=== PATIENT | female | born 2000 | race Caucasian/White ===

== ENCOUNTER → 2019-04-06 11:43 | Outpatient (CLI) | payer BC, SELFPAY ==
[2019-04-06 12:17] LABS: Add Manual Diff / Slide Review NO; Basophils Absolute Auto 0 /uL (0-100); Basophils Percent Auto 0.3 % (0-2); Eosinophils Absolute Auto 100 /uL (0-450); Eosinophils Percent Auto 0.9 % (2-4); Hematocrit 39.5 % (36-46); Hemoglobin 13.5 g/dL (12.0-16.0); Lymphocytes Absolute Auto 1500 /uL (1100-4500); Lymphocytes Percent Auto 18.7 % (25-40); Mean Corpuscular HGB Conc 34.1 % (30-36); Mean Corpuscular Hemoglobin 29.9 PG (26-34); Mean Corpuscular Volume 87.6 fL (80-100); Monocytes Absolute Auto 700 /uL (0-900); Monocytes Percent Auto 8.5 % (3-14); Neutrophils Absolute Auto 5600 /uL (1500-7000); Neutrophils Percent Auto 71.6 % (50-75); Platelet Count 229 X10^3/uL (150-400); Red Blood Cell Count 4.51 X10^6/uL (4.0-5.2); White Blood Cell Count 7.9 X10^3/uL (4.5-11.0)
[2019-04-06 12:21] LABS: Appearance Urine UA CLEAR; Bilirubin Urine UA NEGATIVE (NEGATIVE); Color Urine UA YELLOW; Glucose Urine UA NEGATIVE (Negative); Ketones Urine UA NEGATIVE (NEGATIVE); Leukocyte Esterase Urine UA NEGATIVE (NEGATIVE); Nitrite Urine UA NEGATIVE (Negative); Occult Blood Urine UA 1+ (Negative); Protein Urine UA NEGATIVE (Negative); Specific Gravity Urine UA <=1.005 (1.000-1.035); Urobilinogen Urine UA 0.2 E.U./dL (0.2)
[2019-04-06 12:41] LABS: Amorphous Sediment Urine 1+; RBC Urine 1-5/HPF (0-5/HPF); Squamous Epithelial Cell Urine 5-10 /HPF (0-5/HPF); WBC Urine 1-5/HPF (0-5/HPF)
[2019-04-06 12:42] LABS: Bacteria Urine Occasional (0-1); Mucus Urine 1+ (Negative)
[2019-04-06 15:25] LABS: Hepatitis B Surface Antigen NEGATIVE s/c (NEGATIVE)
[2019-04-06 15:49] LABS: HIV 1 & 2 Ab/Ag 4th Gen Combo NEGATIVE (NEGATIVE); Hep C Virus Ab w/Reflex Quant NEGATIVE s/c (NEGATIVE)
[2019-04-08 15:44] LABS: RPR Screen Nonreactive (Nonreactive)
== END ==
PROVIDERS: PCP Family Medicine; Visit Provider Obstetrics & Gynecology
DX: Z34.01 Encounter for supervision of normal first pregnancy, first trimester (principal)
CPT/HCPCS: 36415; 80055; 81003; 81015; 86787; 86803; 86850; 86900; 86901; 87086; 87389

== ENCOUNTER → 2019-04-26 15:21 | Outpatient (CLI) | payer BC, SELFPAY ==
[2019-04-29 13:34] LABS: Sequential Screen 1st Trimeste FINAL PENDING
== END ==
PROVIDERS: PCP Family Medicine
DX: Z34.01 Encounter for supervision of normal first pregnancy, first trimester (principal); Z3A.12 12 weeks gestation of pregnancy; Z36.0 Encounter for antenatal screening for chromosomal anomalies
CPT/HCPCS: 36415; 84163; 84702

== ENCOUNTER → 2019-05-25 10:15 | Outpatient (CLI) | payer BC, SELFPAY ==
[2019-05-25 11:52] LABS: Hematocrit 36.9 % (36-46); Hemoglobin 12.8 g/dL (12.0-16.0)
[2019-05-25 12:13] LABS: GTT (PREG) 1 Hour PP 50gm Dose 154 mg/dL (76-139)
[2019-05-28 18:45] LABS: Brief History NTD NG; Cigarette Smoker NO; Donated Egg NO; Donor Egg Age NO; Estriol, Free 0.65 ng/mL; Inhibin A, Dimeric 298 pg/mL; Inhibin A, MoM 2.34; Maternal Weight 296 lbs; Number of Fetuses 1; Previous Pregnancy Down Syndro NO; hCG, MoM 2.17; hCG, Serum 44.2 IU/mL
== END ==
PROVIDERS: Family Provider Family Medicine; PCP Family Medicine; Visit Provider Obstetrics & Gynecology
DX: O99.210 Obesity complicating pregnancy, unspecified trimester (principal); Z34.90 Encounter for supervision of normal pregnancy, unspecified, unspecified trimester; Z34.02 Encounter for supervision of normal first pregnancy, second trimester
CPT/HCPCS: 36415; 82105; 82677; 82950; 84702; 85014; 85018; 86336

== ENCOUNTER → 2019-06-01 13:48 | Outpatient (CLI) | payer BC, SELFPAY ==
[2019-06-01 15:27] LABS: Glucose Fasting Gestational 84 mg/dL (76-95)
[2019-06-01 17:32] LABS: Glucose 1 Hour Gest 184 mg/dL (76-180)
[2019-06-01 17:38] LABS: Glucose Tol Interp,Gestational INTERPRETATION
[2019-06-01 17:47] LABS: Glucose 2 Hour Gest 191 mg/dL (76-155)
[2019-06-01 19:18] LABS: Glucose 3 Hour Gest 108 mg/dL (76-140)
[2019-06-04 14:42] LABS: Sequential Screen 2nd Trimeste SCREEN NEGATIVE
== END ==
PROVIDERS: PCP Family Medicine; Visit Provider Obstetrics & Gynecology
DX: Z34.92 Encounter for supervision of normal pregnancy, unspecified, second trimester (principal); Z36.0 Encounter for antenatal screening for chromosomal anomalies; R73.09 Other abnormal glucose
CPT/HCPCS: 36415; 82105; 82677; 82951; 82952; 84163; 84702; 86336

== ENCOUNTER → 2019-06-15 13:40 | Outpatient (CLI) | payer BC, SELFPAY ==
--- NOTE | 2019-06-15 13:41 | DI.US.S_ITS ---
PROCEDURE: US OB >= 14 WEEKS FETUS INDICATIONS: 20 WEEK ANATOMY OUTSIDE/PRIOR DATING DATA: Last menstrual period (LMP): 01/26/19. LMP-based estimated date of delivery (TAMANNA): 11/02/19. First dating scan (date and location): 06/15/19. Estimated date of delivery (TAMANNA) from first dating scan: 10/30/19. TECHNIQUE: Real-time scanning was performed of the fetus, with image documentation and biometric measurements. Endovaginal scanning: Not performed COMPARISON: None. FINDINGS: General: A single living intrauterine gestation is present. Presentation: Vertex. Placenta: Placental position is anterior, there is complete placenta previa Amniotic fluid index: 13 cm, normal range is 5-24 cm. heart rate: 150 beats per minute. Maternal cervical canal: 5.4 cm long. Normal lower limit is 2.5 cm. biometrics: Biparietal diameter: 4.7 cm, 20 weeks 2 days Head circumference: 17.8 cm, 20 weeks 2 days Abdominal circumference: 14.9 cm, 20 weeks one day Femur length: 3.3 cm, 20 weeks 2 days Estimated gestational age from initial scan: not applicable. Composite gestational age from present scan: 20 weeks 3 days Estimated weight and percentile: 339 g, 58th percentile Measurement variability for biometric dating: +/- 7 days from 14 weeks to 15 weeks 6 days gestation, +/- 10 days from 16 weeks to 21 weeks 6 days gestation, +/- 2 weeks from 22 weeks to 27 weeks 6 days gestation, +/- 3 weeks for 28 weeks gestation or later. weight reference: 4500 g or EFW >90/95% is considered macrosomia or large for gestational age. EFW <10% is small for gestational age. EFW 5% or less is considered intra-uterine growth restriction. Anatomic survey: Neuro: Ventricles are non-dilated at less than 10 mm. Cisterna magna is normal at 3-11 mm. Cerebellum is normal in size and morphology. Nuchal skin fold: Normal at less than 6 mm between 14-21 weeks gestational age. Face: Not well-seen due to gestational position Spine: No evidence for spina bifida. Heart: Not well-visualized due to gestational position Diaphragm: Not well-seen. Stomach: Left-sided stomach is present. Kidneys: No hydronephrosis. Normal is less than 5 mm in 2nd trimester, less than 7 mm in 3rd trimester. Cord: 3-vessel cord has orthotopic insertion. Bladder: Normal in size. Extremities: All 4 extremities identified. IMPRESSION: Single living intrauterine fetus in vertex presentation. Expected interval growth as above heart, diaphragm, facial features not well-seen due to gestational position. Recommend followup. Remaining anatomic survey within normal limits as above Complete placenta previa. Recommend followup Dictated by: Jeff Kiran M.D. on 06/15/2019 at 18:47 Approved by: Jeff Kiran M.D. on 06/15/2019 at 18:50
== END ==
PROVIDERS: PCP Family Medicine; Visit Provider Family Medicine
DX: O44.02 Complete placenta previa NOS or without hemorrhage, second trimester (principal); Z3A.20 20 weeks gestation of pregnancy
CPT/HCPCS: 76811

== ENCOUNTER → 2019-06-29 14:17 | Outpatient (CLI) | payer BC, SELFPAY ==
--- NOTE | 2019-06-29 14:18 | DI.US.S_ITS ---
PROCEDURE: US OB FOLLOW UP INDICATIONS: F/U ANATOMY SCAN OUTSIDE/PRIOR DATING DATA: Last menstrual period (LMP): 01/26/19. LMP-based estimated date of delivery (TAMANNA): 11/02/19. First dating scan (date and location): 06/15/19. Estimated date of delivery (TAMANNA) from first dating scan: 10/30/19. TECHNIQUE: Real-time scanning was performed of the fetus, with image documentation. Endovaginal scanning: Not performed today COMPARISON: [facility], OB >= 14 WEEKS FETUS, 06/15/2019, 14:06. FINDINGS: A single living intrauterine gestation is present. Presentation: Variable. Placenta: Placental position is anterior, without previa. Previously seen placenta previa has resolved. The distance between the edge of the placenta to the internal cervical os measured 4.7 cm on today's study. Amniotic fluid index: 17.2 cm, normal range is 5-24 cm. The largest vertical fluid pocket measured 5.5 cm. heart rate: 147 beats per minute. Maternal cervical canal: 3.3 cm long. Normal lower limit is 2.5 cm. Estimated gestational age from initial scan: 22 weeks and 3 days. Evaluation of the diaphragm, heart, and facial bones appear normal. Facial profile well-visualized secondary to positioning throughout the entire examination. IMPRESSION: Single live intrauterine gestation with an estimated gestational age of approximately 22 weeks and 3 days. Interval growth has occurred. Evaluation of the diaphragm, heart, and facial bones appear within normal limits. However, the facial profile is again not well-visualized secondary to positioning throughout the duration of this examination. Consider followup imaging. Previously noted placenta previa is no longer visualized. The distance between the placental edge and the internal cervical os measured 4.7 cm on today's examination. Dictated by: Luis Marx M.D. on 06/29/2019 at 17:54 Approved by: Luis Marx M.D. on 06/29/2019 at 17:59
[2019-06-29 15:58] LABS: Add Manual Diff / Slide Review NO; Basophils Absolute Auto 0 /uL (0-100); Basophils Percent Auto 0.2 % (0-2); Eosinophils Absolute Auto 100 /uL (0-450); Eosinophils Percent Auto 0.9 % (2-4); Hematocrit 36.6 % (36-46); Hemoglobin 12.3 g/dL (12.0-16.0); Lymphocytes Absolute Auto 1300 /uL (1100-4500); Lymphocytes Percent Auto 15.3 % (25-40); Mean Corpuscular HGB Conc 33.5 % (30-36); Mean Corpuscular Hemoglobin 30.2 PG (26-34); Mean Corpuscular Volume 90.1 fL (80-100); Monocytes Absolute Auto 600 /uL (0-900); Monocytes Percent Auto 7.1 % (3-14); Neutrophils Absolute Auto 6600 /uL (1500-7000); Neutrophils Percent Auto 76.5 % (50-75); Platelet Count 214 X10^3/uL (150-400); Red Blood Cell Count 4.06 X10^6/uL (4.0-5.2); Red Cell Distribution Width 14.4 % (11.6-14.8); White Blood Cell Count 8.6 X10^3/uL (4.5-11.0)
[2019-06-29 16:17] LABS: Aspartate Aminotransferase 22 IU/L (14-36); BUN Creatinine Ratio 21.7 (6-22); Blood Urea Nitrogen 13 mg/dL (7-17); Estimated Glomerular Filt Rate > 60.0 mL/min (>60); Uric Acid 4.5 mg/dL (2.5-6.2)
[2019-06-29 16:22] LABS: Creatinine Urine Random 101.1 mg/dL; Protein (Total) Urine Random 12 mg/dL (0-12); Protein Creatinine Ratio Urine 0.11 GRAM/24H
== END ==
PROVIDERS: PCP Family Medicine; Referring Provider Obstetrics & Gynecology; Visit Provider Obstetrics & Gynecology
DX: Z34.92 Encounter for supervision of normal pregnancy, unspecified, second trimester (principal); Z3A.22 22 weeks gestation of pregnancy
CPT/HCPCS: 36415; 76816; 82570; 84156; 84450; 84550; 85025

== ENCOUNTER → 2019-07-13 12:32 | Outpatient (CLI) | payer BC, SELFPAY ==
--- NOTE | 2019-07-13 12:33 | DI.US.S_ITS ---
PROCEDURE: US OB FOLLOW UP INDICATIONS: FOLLOW UP FACE AND PROFILE OUTSIDE/PRIOR DATING DATA: Last menstrual period (LMP): 01/26/19. LMP-based estimated date of delivery (TAMANNA): 11/02/19. First dating scan (date and location): 06/15/19. Estimated date of delivery (TAMANNA) from first dating scan: 10/30/19.. TECHNIQUE: Real-time scanning was performed of the fetus, with image documentation and biometric measurements. Endovaginal scanning: NA COMPARISON: [facility], OB FOLLOW UP, 06/29/2019, 14:39. FINDINGS: General: A single living intrauterine gestation is present. Presentation: Breech Placenta: Placental position is anterior, without previa. Amniotic fluid index: 14.4 cm, normal range is 5-24 cm. heart rate: 158 beats per minute. Maternal cervical canal: Not well-seen. Estimated gestational age from initial scan: 24 weeks 3 days Other: Not applicable. IMPRESSION: 1. Single living IUP redemonstrated and today's exam demonstrating normal appearance of the diaphragm, orbits, left, nose, chin and facial profile. Dictated by: Glenn NERI Interpreted: Jennifer Chirinos MD on 07/13/2019 at 16:24 Approved by: Audi Mcclain M.D. on 07/16/2019 at 11:36
== END ==
PROVIDERS: PCP Family Medicine; Referring Provider Family Medicine; Visit Provider Obstetrics & Gynecology
DX: Z36.2 Encounter for other antenatal screening follow-up (principal); Z3A.24 24 weeks gestation of pregnancy
CPT/HCPCS: 76816

== ENCOUNTER → 2019-08-10 13:06 | Outpatient (CLI) | payer BC, SELFPAY ==
[2019-08-10 14:02] LABS: Hematocrit 38.8 % (36-46); Hemoglobin 13.1 g/dL (12.0-16.0); Mean Corpuscular HGB Conc 33.8 % (30-36); Mean Corpuscular Hemoglobin 30.2 PG (26-34); Mean Corpuscular Volume 89.5 fL (80-100); Platelet Count 249 X10^3/uL (150-400); Red Blood Cell Count 4.34 X10^6/uL (4.0-5.2); White Blood Cell Count 9.3 X10^3/uL (4.5-11.0)
== END ==
PROVIDERS: Obstetrics & Gynecology; PCP Family Medicine; Referring Provider Obstetrics & Gynecology; Visit Provider Obstetrics & Gynecology
DX: Z34.02 Encounter for supervision of normal first pregnancy, second trimester (principal); Z3A.28 28 weeks gestation of pregnancy
CPT/HCPCS: 36415; 85027; 86850

== ENCOUNTER → 2019-09-17 11:47 | Outpatient (CLI) | payer BC, SELFPAY ==
[2019-09-17 13:35] LABS: Add Manual Diff / Slide Review NO; Basophils Absolute Auto 0 /uL (0-100); Basophils Percent Auto 0.3 % (0-2); Eosinophils Absolute Auto 100 /uL (0-450); Eosinophils Percent Auto 0.9 % (2-4); Hemoglobin 12.5 g/dL (12.0-16.0); Lymphocytes Absolute Auto 1200 /uL (1100-4500); Lymphocytes Percent Auto 13.8 % (25-40); Mean Corpuscular HGB Conc 33.7 % (30-36); Monocytes Absolute Auto 700 /uL (0-900); Monocytes Percent Auto 7.5 % (3-14); Neutrophils Absolute Auto 7000 /uL (1500-7000); Neutrophils Percent Auto 77.5 % (50-75); Platelet Count 227 X10^3/uL (150-400); Red Blood Cell Count 4.16 X10^6/uL (4.0-5.2); Red Cell Distribution Width 14.6 % (11.6-14.8)
== END ==
PROVIDERS: PCP Family Medicine; Referring Provider Obstetrics & Gynecology; Visit Provider Obstetrics & Gynecology
DX: Z34.90 Encounter for supervision of normal pregnancy, unspecified, unspecified trimester (principal)
CPT/HCPCS: 36415; 85025

== ENCOUNTER 2019-09-24 10:54 | Outpatient (CLI) | payer BC, SELFPAY ==
--- NOTE | 2019-09-24 13:38 | PM.OBTRLD ---
Visit Information Visit Information Date of evaluation: 09/24/19 Primary OB Provider: Sammie Machuca Reason for Evaluation: Yes non-stress test Comments/Additional reasons for admission: This patient is a 18yo @34 weeks with well controlled GDMA1, presenting for scheduled testing after 12/24 BPP in office. PFSH Social History marital status: unmarried,living together household members: significant other pets and animals: Yes (Cats in-house and aware) education level: high school occupational status: student current occupational exposures/hazards: No Previous occupational history: Considering College : [employer] Pet[employer] special issa needs: No travel history: recent leisure activities: exercise (walks) Smoking Status: Never smoker second hand exposure: No Evaluation Evaluation Baseline heart rate: 125 Variability: Moderate (11-25) monitor accelerations: Present monitor decelerations: Absent Category of Tracing: I Comments: tracing difficult due to body habitus- frequent LOC, maternal HR 100 Diagnosis, Plan/Disposition Plan/Disposition Plan: Home with routine f/u OB Disposition: home
== END 2019-09-24 12:25 | disposition home or self-care (01) ==
LOC: LABOR 11:01 → OB 09-27 09:34
PROVIDERS: PCP Family Medicine; Referring Provider Obstetrics & Gynecology; Visit Provider Obstetrics & Gynecology
DX: O24.419 Gestational diabetes mellitus in pregnancy, unspecified control (principal); Z3A.34 34 weeks gestation of pregnancy
CPT/HCPCS: 59025; G0378; G0379

== ENCOUNTER 2019-10-01 14:01 | Outpatient (CLI) | payer BC, SELFPAY ==
--- NOTE | 2019-10-01 14:35 | PM.OBTRLD ---
Visit Information Visit Information Date of evaluation: 10/01/19 Primary OB Provider: Sammie Machuca Reason for Evaluation: Yes non-stress test Comments/Additional reasons for admission: Patient with well controlled GDMA1, for NST after in-office BPP. Vital Signs Vital Signs: 124/70, HR 102 PFSH Surgical History Hx of tonsillectomy (Acute) [place] teeth extracted (Acute) Family History Mother Depression Bipolar 1 disorder Hypertension Hyperlipidemia Father Acquired hypothyroidism Grandfather Diabetes mellitus Grandfather Cancer Alzheimer's dementia Grandmother Cancer Family/Other Myocardial infarction Social History marital status: unmarried,living together household members: significant other pets and animals: Yes (Cats in-house and aware) education level: high school occupational status: student current occupational exposures/hazards: No Previous occupational history: 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 OB Disposition: home
== END 2019-10-01 14:38 | disposition home or self-care (01) ==
LOC: LABOR 14:11 → OB 10-04 15:08
PROVIDERS: PCP Family Medicine; Referring Provider Obstetrics & Gynecology; Visit Provider Obstetrics & Gynecology
DX: O24.419 Gestational diabetes mellitus in pregnancy, unspecified control (principal); Z3A.35 35 weeks gestation of pregnancy
CPT/HCPCS: 59025; 87653; G0378; G0379

== ENCOUNTER → 2019-10-01 14:03 | Outpatient (CLI) | payer BC, SELFPAY ==
[2019-10-02 10:06] LABS: Strep Grp B PCR NEG for Grp B Strep
== END ==
PROVIDERS: PCP Family Medicine; Visit Provider Obstetrics & Gynecology
DX: Z34.03 Encounter for supervision of normal first pregnancy, third trimester (principal); Z3A.35 35 weeks gestation of pregnancy
CPT/HCPCS: 87653

== ENCOUNTER → 2019-10-08 14:12 | Outpatient (CLI) | payer BC, SELFPAY ==
--- NOTE | 2019-10-08 14:13 | DI.US.S_ITS ---
PROCEDURE: US OB LIMITED INDICATIONS: EFW OUTSIDE/PRIOR DATING DATA: Last menstrual period (LMP): 01/26/19. LMP-based estimated date of delivery (TAMANNA): 11/02/19. First dating scan (date and location): 06/15/19. Estimated date of delivery (TAMANNA) from first dating scan: 10/30/19. TECHNIQUE: Real-time scanning was performed of the fetus, with image documentation and biometric measurements. Endovaginal scanning: Not performed COMPARISON: [facility], OB >= 14 WEEKS FETUS, 10/08/2019, 10:17. [facility] OB >= 14 WEEKS FETUS, 10/01/2019, 13:23. [facility] OB >= 14 WEEKS FETUS, 09/24/2019, 10:39. [facility] OB >= 14 WEEKS FETUS, 09/17/2019, 11:15. [facility] OB >= 14 WEEKS FETUS, 08/20/2019, 11:50. [facility] OB FOLLOW UP, 07/13/2019, 13:01. [facility] OB FOLLOW UP, 06/29/2019, 14:39. [facility] OB >= 14 WEEKS FETUS, 06/15/2019, 14:06. FINDINGS: General: Presentation: Vertex. Placenta: Placental position is anterior, without previa. Amniotic fluid index: 14.8 cm, normal range is 5-24 cm. heart rate: 150 beats per minute. biometrics: Biparietal diameter: 9.0 cm, 36 weeks 3 days Head circumference: 33.3 cm, 38 weeks zero days Abdominal circumference: 32.9 cm, 36 weeks 6 days Femur length: 7.5 cm, 38 weeks one day Estimated gestational age from initial scan: 36 weeks 6 days Composite gestational age from present scan: 37 weeks 3 days Estimated weight and percentile: 3144 g, 65th percentile Measurement variability for biometric dating: +/- 7 days from 14 weeks to 15 weeks 6 days gestation, +/- 10 days from 16 weeks to 21 weeks 6 days gestation, +/- 2 weeks from 22 weeks to 27 weeks 6 days gestation, +/- 3 weeks for 28 weeks gestation or later. weight reference: 4500 g or EFW >90/95% is considered macrosomia or large for gestational age. EFW <10% is small for gestational age. EFW 5% or less is considered intra-uterine growth restriction. Other: Not applicable. IMPRESSION: Single living intrauterine fetus in vertex presentation demonstrating expected interval growth. Estimated weight 3144 g, 65th percentile Dictated by: Jeff Kiran M.D. on 10/08/2019 at 16:32 Approved by: Jeff Kiran M.D. on 10/08/2019 at 16:35
== END ==
PROVIDERS: PCP Family Medicine; Referring Provider Family Medicine; Visit Provider Obstetrics & Gynecology
DX: Z34.83 Encounter for supervision of other normal pregnancy, third trimester (principal); Z3A.37 37 weeks gestation of pregnancy
CPT/HCPCS: 76815

== ENCOUNTER 2019-10-08 15:00 | Outpatient (CLI) | payer BC, SELFPAY | END 2019-10-08 16:30 | disposition home or self-care (01) | LOC: OB 10-12 11:37 | PROVIDERS: PCP Family Medicine; Referring Provider Obstetrics & Gynecology; Visit Provider Obstetrics & Gynecology | DX: O24.410 Gestational diabetes mellitus in pregnancy, diet controlled (principal); E16.2 Hypoglycemia, unspecified; Z3A.37 37 weeks gestation of pregnancy | CPT/HCPCS: 59025; 76815; G0378; G0379 ==

== ENCOUNTER 2019-10-13 21:29 | Outpatient (CLI) | payer BC, SELFPAY ==
[2019-10-13 21:50] LABS: Add Manual Diff / Slide Review NO; Basophils Absolute Auto 0 /uL (0-100); Basophils Percent Auto 0.4 % (0-2); Eosinophils Absolute Auto 100 /uL (0-450); Hematocrit 36.7 % (36-46); Hemoglobin 12.6 g/dL (12.0-16.0); Lymphocytes Absolute Auto 1400 /uL (1100-4500); Lymphocytes Percent Auto 18.3 % (25-40); Mean Corpuscular HGB Conc 34.3 % (30-36); Mean Corpuscular Hemoglobin 30.3 PG (26-34); Mean Corpuscular Volume 88.2 fL (80-100); Monocytes Absolute Auto 600 /uL (0-900); Monocytes Percent Auto 7.5 % (3-14); Neutrophils Absolute Auto 5800 /uL (1500-7000); Neutrophils Percent Auto 72.8 % (50-75); Platelet Count 237 X10^3/uL (150-400); Red Blood Cell Count 4.16 X10^6/uL (4.0-5.2); Red Cell Distribution Width 14.8 % (11.6-14.8); White Blood Cell Count 7.9 X10^3/uL (4.5-11.0)
[2019-10-13 21:59] LABS: Aspartate Aminotransferase 20 IU/L (14-36); BUN Creatinine Ratio 18.2 (6-22); Blood Urea Nitrogen 12 mg/dL (7-17); Estimated Glomerular Filt Rate > 60.0 mL/min (>60); Uric Acid 5.8 mg/dL (2.5-6.2)
== END 2019-10-13 22:37 | disposition home or self-care (01) ==
LOC: OB 10-19 12:33
PROVIDERS: Obstetrics & Gynecology; PCP Family Medicine; Referring Provider Obstetrics & Gynecology; Visit Provider Obstetrics & Gynecology
DX: O24.410 Gestational diabetes mellitus in pregnancy, diet controlled (principal); E16.2 Hypoglycemia, unspecified; Z3A.37 37 weeks gestation of pregnancy
CPT/HCPCS: 36415; 59025; 84450; 84550; 85025; G0378; G0379

== ENCOUNTER 2019-10-15 11:24 | Outpatient (CLI) | payer BC, SELFPAY ==
--- NOTE | 2019-10-15 11:53 | PM.OBTRLD ---
Visit Information Visit Information Date of evaluation: 10/15/19 Primary OB Provider: Sammie Machuca Reason for Evaluation: Yes non-stress test Comments/Additional reasons for admission: Patient in scheduled testing for GDMA1. PFSH Surgical History Hx of tonsillectomy (Acute) [place] teeth extracted (Acute) Family History Mother Depression Bipolar 1 disorder Hypertension Hyperlipidemia Father Acquired hypothyroidism Grandfather Diabetes mellitus Grandfather Cancer Alzheimer's dementia Grandmother Cancer Family/Other Myocardial infarction Social History marital status: unmarried,living together household members: significant other pets and animals: Yes (Cats in-house and aware) education level: high school occupational status: student current occupational exposures/hazards: No Previous occupational history: Considering College : [employer] special issa needs: No travel history: recent leisure activities: exercise (walks) Smoking Status: Never smoker second hand exposure: No Exam Vital Signs (past 8 hours): 114/65, HR 92 Evaluation Evaluation Baseline heart rate: 115 Variability: Moderate (11-25) monitor accelerations: Present monitor decelerations: Absent Contraction Frequency (minutes): 3 Category of Tracing: I Diagnosis, Plan/Disposition Plan/Disposition Plan: home with routine follow up. OB Disposition: home
== END 2019-10-15 11:55 | disposition home or self-care (01) ==
LOC: LABOR 11:36 → OB 10-19 12:36
PROVIDERS: PCP Family Medicine; Referring Provider Obstetrics & Gynecology; Visit Provider Obstetrics & Gynecology
DX: O24.410 Gestational diabetes mellitus in pregnancy, diet controlled (principal); Z3A.37 37 weeks gestation of pregnancy
CPT/HCPCS: 59025; G0378; G0379

== ENCOUNTER 2019-10-22 12:33 | Outpatient (CLI) | payer BC, SELFPAY | END 2019-10-22 13:20 | disposition home or self-care (01) | LOC: LABOR 12:48 → OB 10-26 07:39 | PROVIDERS: PCP Family Medicine; Referring Provider Obstetrics & Gynecology; Visit Provider Obstetrics & Gynecology | DX: O24.410 Gestational diabetes mellitus in pregnancy, diet controlled (principal); Z3A.38 38 weeks gestation of pregnancy | CPT/HCPCS: 59025; G0378; G0379 ==

== ENCOUNTER → 2019-10-24 16:02 | Outpatient (CLI) | payer BC, SELFPAY ==
[2019-10-25 03:19] LABS: COVID19 Sendout Not Detected (Not Detect)
== END ==
PROVIDERS: PCP Family Medicine; Visit Provider Physician Assistant
DX: Z01.812 Encounter for preprocedural laboratory examination (principal)
CPT/HCPCS: 87635

== ENCOUNTER 2019-10-26 18:26 | Inpatient (IN) | payer BC, SELFPAY ==
[2019-10-26 18:45] VITALS: BP 131/71
[2019-10-26 20:00] LABS: Add Manual Diff / Slide Review NO; Basophils Absolute Auto 100 /uL (0-100); Basophils Percent Auto 0.6 % (0-2); Eosinophils Absolute Auto 100 /uL (0-450); Eosinophils Percent Auto 1.1 % (2-4); Hematocrit 37.8 % (36-46); Hemoglobin 13.1 g/dL (12.0-16.0); Lymphocytes Absolute Auto 1600 /uL (1100-4500); Lymphocytes Percent Auto 18.6 % (25-40); Mean Corpuscular HGB Conc 34.6 % (30-36); Mean Corpuscular Hemoglobin 30.6 PG (26-34); Mean Corpuscular Volume 88.3 fL (80-100); Monocytes Absolute Auto 700 /uL (0-900); Monocytes Percent Auto 7.8 % (3-14); Neutrophils Absolute Auto 6100 /uL (1500-7000); Neutrophils Percent Auto 71.9 % (50-75); Platelet Count 250 X10^3/uL (150-400); Red Blood Cell Count 4.28 X10^6/uL (4.0-5.2); Red Cell Distribution Width 14.7 % (11.6-14.8); White Blood Cell Count 8.4 X10^3/uL (4.5-11.0)
[2019-10-26] MEDS: DINOPROSTONE VAG (CERVIDIL) 10 MG VAG (20:45)
--- NOTE | 2019-10-27 07:47 | PM.OBHP.1 ---
OB HPI Date/Time Date of admission: 10/26/19 Date Patient Seen: 10/27/19 Time Patient Seen: 07:50 History of Present Condition Chief complaint: : 1 Para: 0 Estimated Date of Delivery: 11/02/19 Estimated Gestational Age (weeks): 39 Narrative: Geoffrey Aponte is a 18 year old @39+1 with well controlled GDMA1, presenting for induction of labor. The patient reports feeling well this AM and at admission, with irregular contractions somewhat intensifying this AM, but no VB, LOF, decreased movement, or PIH complaints. Other than her GDMA, the patient's has been uncomplicated. Her medical history is significant for depression, which is currently well controlled without medications. Indications Indication for induction OB: other (GDMA) History of Present care: good care, initiated at week # (10) and pounds weight gain (-19) Dating criteria: LMP confirmed by 1st trimester US Ultrasounds: normal 1st trimester US and normal mid trimester US Obstetrical complications: gestational diabetes Preadmission Labs Blood type: 0 (-) negative -: Antibody screen: negative, GBS status: negative, HBsAG: negative, HIV: negative, HSV 1: negative, HSV 2: negative and RPR/VDLR: negative -: Chlamydia screen: not detected and Gonorrhea screen: not detected -: Rubella: immune and Varicella: immune Sequential screen: low risk 1 hr GTT: 154 3 hr GTT: 3 hr (2/4 elevated) Evaluation Evaluation Baseline heart rate: 120 Variability: Average (6-10) monitor accelerations: Present monitor decelerations: Absent Category of Tracing: I Cervical dilation (cm): 3 Cervical effacement (%): 80 station: -1 Laboratory results: Laboratory Tests 10/26/19 10/26/19 19:50 19:50 WBC 8.4 RBC 4.28 Hgb 13.1 Hct 37.8 MCV 88.3 MCH 30.6 MCHC 34.6 RDW 14.7 Plt Count 250 Neut % (Auto) 71.9 Lymph % (Auto) 18.6 L [place] % (Auto) 7.8 Eos % (Auto) 1.1 L Baso % (Auto) 0.6 Neut # (Auto) 6100 Lymph # (Auto) 1600 Granite # (Auto) 700 Eos # (Auto) 100 Baso # (Auto) 100 Blood Type O Negative Antibody Screen Positive Antibody Identification Anti-D Comments: EFW 7#8 PFSH Surgical History Hx of tonsillectomy (Acute) [place] teeth extracted (Acute) Family History Mother Depression Bipolar 1 disorder Hypertension Hyperlipidemia Father Acquired hypothyroidism Grandfather Diabetes mellitus Grandfather Cancer Alzheimer's dementia Grandmother Cancer Family/Other Myocardial infarction Social History marital status: unmarried,living together household members: significant other pets and animals: Yes (Cats in-house and aware) education level: high school occupational status: student current occupational exposures/hazards: No Previous occupational history: 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 travel history: recent leisure activities: exercise (walks) Smoking Status: Never smoker second hand exposure: No Meds Home Medications and Allergies Home Medications Medication Instructions Recorded Confirmed Type prenat.vits,lisandra,[id number] 1 tab PO DAILY 03/23/19 04/26/19 History blood-glucose meter #1 each 06/04/19 Rx blood sugar diagnostic #400 each 06/07/19 06/07/19 Rx lancets 28 gauge #400 each 06/07/19 06/07/19 Rx Double Electric breast Pump and #1 each 08/10/19 Rx Supplies Allergies Allergy/AdvReac Type Severity Reaction Status Date / Time No Known Drug Allergies Allergy Verified 10/24/19 15:57 Review of Systems Constitutional Constitutional: Reports system reviewed and no additional complaints, except as documented Cardiovascular Cardiovascular: Reports system reviewed and no additional complaints, except as documented Respiratory Respiratory: Reports system reviewed and no additional complaints, except as documented Gastrointestinal Gastrointestinal: Reports system reviewed and no additional complaints, except as documented Genitourinary Genitourinary: Reports system reviewed and no additional complaints, except as documented Neurologic Neurologic: Reports system reviewed and no additional complaints, except as documented Exam Vital Signs (past 8 hours): 126/72, HR 90, T 36.7C Const General: cooperative, healthy appearing and comfortable GI Inspection: obesity Palpation: soft and No tender External Female Exam: normal external appearance Extrem General: normal to inspection Objective Labs Result Diagrams: 10/26/19 19:50 Labs: Laboratory Results - last 24 hr 10/26/19 10/26/19 19:50 19:50 WBC 8.4 RBC 4.28 Hgb 13.1 Hct 37.8 MCV 88.3 MCH 30.6 MCHC 34.6 RDW 14.7 Plt Count 250 Neut % (Auto) 71.9 Lymph % (Auto) 18.6 L Granite % (Auto) 7.8 Eos % (Auto) 1.1 L Baso % (Auto) 0.6 Neut # (Auto) 6100 Lymph # (Auto) 1600 Granite # (Auto) 700 Eos # (Auto) 100 Baso # (Auto) 100 Blood Type O Negative Antibody Screen Positive Antibody Identification Anti-D Assessment and Plan Assessment and Plan Assessment and Plan narrative: This patient is admitted for induction of labor at 39 weeks gestation due to GDMA1. She has a favorable cervix after 11 hours of ripening with a cervidil, which spontaneously fell out at 7 AM. She will be started on pitocin per protocol. Given her excellent GDMA1 control, FSGs to be performed every 1-2 hours while in labor. Patient to ambulate as feasible given difficulty of monitoring with habitus. - cEFM, toco - pitocin per protocol - HLIV, IV fluids as needed - Patient would like to try for unmedicated delivery, can have epidural at any time if desired - clear liquid diet during indution
[2019-10-27] MEDS: LACTATED RINGERS 1,000 ML 100 ML IV (08:37)
[2019-10-27] MEDS: OXYTOCIN PREMIX 30 UNIT/500 ML PLAST..BAG IV (08:37)
--- NOTE | 2019-10-27 11:06 | PM.OBPNLAB ---
Date/Time Date Patient Seen: 10/27/19 Time Patient Seen: 11:06 Pain Control Pain control: tolerating well Pelvic Exam Dilation (cm): 4 Effacement (%): 80 station: -1 Amniotic membrane status: Ruptured (AROM, clear fluid) Contractions Pitocin rate (mU/min): 6 Contraction frequency (min): 3 Contraction duration (min): 1 Contraction pattern: Regular Status status: Category l Heart Rate Baseline: 125 Monitor Accelerations: Present Monitor Decelerations: Absent Monitor Variability: Moderate Comments: +scalp stim Assessment and Plan Assessment: induction ongoing Plan: continuous present management Comments: Continue pitocin per protocol.
[2019-10-27] MEDS: CALCIUM CARBONATE 500 MG TAB PO (13:18)
[2019-10-27] MEDS: METHYLERGONOVINE 0.2 MG/ML VIAL IM (18:48)
--- NOTE | 2019-10-27 19:08 | PM.OBPRVD ---
Events: Gestational Diabetes Labor & Delivery Delivery date: 10/27/19 Intrapartal events: Acceleration and Deceleration Cervical ripening method: per Cervidil protocol Induction method: per pitocin protocol Delivery augmentation: rupture of membranes Delivery monitor: external FHT and external uterine Route of delivery: L&D Laceration Description: Periurethral - 1st Degree and Perineal - 2nd Degree Delivery repair: vicryl Estimated blood loss (mL): 350 Anesthesia type: None Narrative: This patient is a 18yo now P1 s/p after induction of labor for GDMA1. The patient presented and underwent cervical ripening with cervidil with subsequent transition to pitocin. She was induced per pitocin protocol, underwent AROM at 4cm, and progressed spontaneously to fully dilated. After a 1 hour pushing stage, she delivered a healthy baby girl. There was no nuchal cord, and the shoulders delivered with ease. Apgars were 8+8, weight 7#13. The placenta delivered intact spontaneously shortly thereafter with a three vessel cord. The patient received 30mU pitocin and 1x IM methergine due to persistent lower uterine segment atony. A small 2nd degree laceration was repaired in the usual fashion, and small 1st degree periuretheral lacerations bilaterally were spontaneously hemostatic. There were no other intrapartum or immediate complications. [place] Baby 1: Infant gender: Female Presentation: vertex position: Left Occiput Transverse (ALLISON) Placenta delivery description: Spontaneous cord vessel description: Clamped/Cut (Delayed cord clamping x1 minute) score (1 min): 8 score (5 min): 8 Plan for aftercare: Routine care.
[2019-10-27] MEDS: DERMOPLAST SPRAY 20% 60 ML 1 SPRAY TOP (22:24)
[2019-10-27] MEDS: IBUPROFEN 600 MG TABLET PO (22:24)
--- NOTE | 2019-10-28 15:27 | P.DS_ITS ---
Discharge Providers Provider Date of admission: 10/26/19 18:26 Discharge Date: 10/28/19 Primary care physician: Franchesca Farr DO Discharge provider: Sammie Machuca MD Summary Hospital Course Procedures: after induction of labor for GDMA1 Hospital Course: This patient was admitted at 39 weeks for induction of labor for GDMA1. She underwent cervical ripening with cervidil and induction with pitocin, per protocol. Her delivery was an uncomplicated , with AROM 7 hours before delivery for clear fluid throughout, GBS negative. She was delivered of a health y baby girl with apgars 8+8, no nuchal cord, shoulders delivered with ease, and weight 7#13, with meconium so terminal as to be at the introitus. The patient was shortly after the delivery, but the baby began to have respiratory distress approximately 4 hours after delivery and was transferred to a facility with a NICU with what was thought to be RDS vs. pneumonia. The patient strongly desired discharge to follow the baby to the receiving facility, and as she was stable and meeting goals, was discharged approximately 7 hours after delivery with plans to follow up in clinic for rhogam within 48 hours, which did occur. Peripartum Data Delivery Method: Natural Vaginal Laceration description: Perineal - 2nd Degree (repaired with 3-0 vicryl in the usual fashion) complications: other (with baby, see above) [place] 1: Gender: Female Disposition of : NICU Status at Discharge Cognitive/behavioral status at discharge: oriented Functional status at discharge: independent ambulation Overall status at discharge: patient is progressing back to baseline Time Spent with Patient Time attestation: Total time spent providing and/or coordinating discharge services: Objective Labs Result Diagrams: 10/26/19 19:50 Labs: Laboratory Results - last 24 hr 10/28/19 02:10 Maternal Bleed Negative Discharge Plan Discharge Plan Patient Disposition: Home Discharge orders & Medications Prescriptions: Continued (DME) Double Electric breast Pump and Supplies See Rx Instructions .ROUTE .MEDSUPPLY Qty: 1 RF: 0 Discontinued prenat.vits,lisandra,[id number] Tablet 1 tab PO DAILY RF: 0 Follow up/Referrals: Franchesca Farr DO [Primary Care Provider] - Visit Report/Discharge Packet Stand Alone Forms: Discharge: Care, Discharge: Care Discharge Data Primary Care Provider: Franchesca Farr Discharges patient from system. Discharge Date/Time: 10/28/19 02:24
== END 2019-10-28 02:24 | disposition home or self-care (01) | DRG 807 ==
PROVIDERS: Admitting Provider Obstetrics & Gynecology; PCP Family Medicine; Referring Provider Obstetrics & Gynecology; Visit Provider Obstetrics & Gynecology
DX: O24.429 Gestational diabetes mellitus in childbirth, unspecified control (principal); Z37.0 Single live birth; O71.82 Other specified trauma to perineum and vulva; O70.1 Second degree perineal laceration during delivery; Z3A.39 39 weeks gestation of pregnancy; Z01.812 Encounter for preprocedural laboratory examination
CPT/HCPCS: 36415; 59050; 59200; 59400; 85025; 85461; 86850; 86870; 86900; 86901; 87635; G0378; G0379; J2210; J2590

== ENCOUNTER → 2019-10-29 14:59 | Outpatient (CLI) | payer BC, SELFPAY ==
[2019-10-29 16:09] LABS: Add Manual Diff / Slide Review NO; Basophils Absolute Auto 0 /uL (0-100); Basophils Percent Auto 0.3 % (0-2); Eosinophils Absolute Auto 100 /uL (0-450); Eosinophils Percent Auto 1.6 % (2-4); Hematocrit 35.3 % (36-46); Hemoglobin 11.9 g/dL (12.0-16.0); Lymphocytes Absolute Auto 1400 /uL (1100-4500); Lymphocytes Percent Auto 15.7 % (25-40); Mean Corpuscular HGB Conc 33.6 % (30-36); Mean Corpuscular Hemoglobin 29.8 PG (26-34); Mean Corpuscular Volume 88.7 fL (80-100); Monocytes Absolute Auto 800 /uL (0-900); Monocytes Percent Auto 8.3 % (3-14); Neutrophils Absolute Auto 6800 /uL (1500-7000); Neutrophils Percent Auto 74.1 % (50-75); Platelet Count 245 X10^3/uL (150-400); Red Blood Cell Count 3.99 X10^6/uL (4.0-5.2); Red Cell Distribution Width 14.9 % (11.6-14.8); White Blood Cell Count 9.1 X10^3/uL (4.5-11.0)
== END ==
PROVIDERS: PCP Family Medicine; Referring Provider Obstetrics & Gynecology; Visit Provider Obstetrics & Gynecology
DX: R00.2 Palpitations (principal)
CPT/HCPCS: 36415; 85025

== ENCOUNTER 2019-11-04 09:47 | Emergency (ER) | payer BC, SELFPAY ==
[2019-11-04 09:54] VITALS: BP 143/88; PULSE 68; RESP 15; TEMP 37; O2SAT 100; BMI 39.4
--- NOTE | 2019-11-04 10:00 | DI.RAD.S_ITS ---
PROCEDURE: XR CHEST 1V INDICATIONS: chest pain TECHNIQUE: One view of the chest was acquired. COMPARISON: [facility], , CHEST 2 VIEW, 11/13/2016, 20:53. FINDINGS: Surgical changes and devices: None. Lungs and pleura: Lungs are clear. No pleural effusions or pneumothorax. Mediastinum: Mediastinal contours appear normal. Heart size is normal. Bones and chest wall: No suspicious bony lesions. Overlying soft tissues appear unremarkable. IMPRESSION: No acute cardiopulmonary abnormalities or focal airspace disease. Dictated by: Luis Marx M.D. on 11/04/2019 at 10:41 Approved by: Luis Marx M.D. on 11/04/2019 at 10:42
--- NOTE | 2019-11-04 10:13 | PC.NURSE ---
Denies chest pain, reports tight feeling in left chest, intermittent in intensity/constant. Occasional dizziness.
--- NOTE | 2019-11-04 10:18 | ED.CHESTPAIN ---
HPI - Chest Pain General Chief Complaint: Chest Pain Stated Complaint: WEEK POST ,CHEST PAIN/HIGH BLOOD PRESSURE Time Seen by Provider: 11/04/19 10:04 Source: patient Mode of arrival: Ambulatory Limitations: no limitations History of Present Illness HPI narrative: 18-year-old female. G1 now P1. Patient is Rh negative. Received RhoGAM post . Induced at 39 weeks gestation for diet-controlled gestational diabetes. Had a vaginal delivery of a girl. The baby did need to be transferred secondary to respiratory distress however since has been discharge from the NICU. Baby is breast-fed and bottle-fed. Mother states she is bonding well with the child. Her vaginal bleeding has greatly improved. Since delivery developed back pain and went to a chiropractor and had an adjustment. She reports this has improved. She also reports that she had lower extremity swelling which has since improved. No abdominal pain. She states that today she developed a headache. No vision changes. She had a home blood pressure cuff in took her blood pressure had a systolic in the 130s. She repeated it short time afterwards and had a systolic in the 140s. She contacted her OB provider and had scheduled a follow-up this afternoon for blood pressure check however patient then started to develop left-sided chest pressure so was told to come to the emergency department. She reports no shortness of breath. No right upper quadrant pain. No urinary symptoms. No change in bowel habits. Had no blood pressure issues during her . Related Data Previous Rx's Medication Instructions Recorded Double Electric breast Pump and #1 each 08/10/19 Supplies Allergies Allergy/AdvReac Type Severity Reaction Status Date / Time No Known Drug Allergies Allergy Verified 11/04/19 09:54 Review of Systems Constitutional Constitutional: Denies fever(s) and Reports headache(s) Eyes Eyes: Denies change in vision ENT Ears, Nose, Mouth, and Throat: Denies vertigo, Denies dizziness, Reports headache(s) and Denies sore throat Cardiovascular Cardiovascular: Reports chest pain (Described as a pressure), Denies rapid heart rate, Reports leg edema (Has improved since delivery) and Denies dyspnea Respiratory Respiratory: Denies cough and Denies dyspnea Gastrointestinal Gastrointestinal: Denies abdominal pain, Denies change in bowel habits, Denies diarrhea, Denies nausea and Denies vomiting Genitourinary Genitourinary: Denies dysuria Genitourinary: Denies dysuria Musculoskeletal Musculoskeletal: Denies arthralgias, Denies myalgias and Denies tingling Integumentary/Breasts Skin/Breast: Denies lesions and Denies rash Neurologic Neurologic: Denies behavioral changes, Denies confusion, Denies vertigo, Denies dizziness, Reports headache(s) and Denies tingling Psychiatric Psychiatric: Denies behavioral changes and Denies confusion Hematologic/Lymphatic Hematologic/Lymphatic: Denies easy bleeding and Denies easy bruising Patient History Medical History Vaginal delivery (Acute) Surgical History Hx of tonsillectomy (Acute) [place] teeth extracted (Acute) Family History Mother Depression Bipolar 1 disorder Hypertension Hyperlipidemia Father Acquired hypothyroidism Grandfather Diabetes mellitus Grandfather Cancer Alzheimer's dementia Grandmother Cancer Family/Other Myocardial infarction Social History marital status: unmarried,living together household members: significant other pets and animals: Yes (Cats in-house and aware) education level: high school occupational status: student current occupational exposures/hazards: No Previous occupational history: Considering 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 travel history: recent leisure activities: exercise (walks) Smoking Status: Never smoker second hand exposure: No Smoking Status: Never smoker Exam Initial Vital Signs Initial Vital Signs: Vital Signs Temperature 98.6 F 11/04/19 09:54 Pulse Rate 68 11/04/19 09:54 Respiratory Rate 15 11/04/19 09:54 Blood Pressure 143/88 H 11/04/19 09:54 Pulse Oximetry 100 11/04/19 09:54 Const General: cooperative, comfortable and well developed Limitations: mental status not altered HENCA Head: normal to inspection and normocephalic Chest Chest: No crepitus and No tenderness Resp Effort & Inspection: normal respiratory effort Auscultation: clear to auscultation bilaterally Cardio Rate: regular rate Rhythm: regular rhythm GI Inspection: non-distended Palpation: soft and No firm Skin Lesions: no lesions Rashes: no rashes Neuro General: patient alert, patient awake and patient oriented x3 Cognition: normal cognition Speech: speech normal Extrem General: normal to inspection, capillary refill normal and edema (1+ bilateral) Psych Appearance: grossly normal and well kempt Course Orders Ordered: ED Orders 11/04/19 10:00 XR chest 1V Stat EKG-12 Lead Stat 11/04/19 10:44 EKG-12 Lead Stat 11/04/19 10:45 Complete Blood Count AUTO DIFF Stat Comprehensive Metabolic Panel Stat Lipase Stat Partial Thromboplastin Time Stat Prothrombin Time INR Stat Troponin & CK Cardiac Panel Stat 11/04/19 11:20 Urine Microscopic Stat Vital Signs Vital signs: Vital Signs - 8 hr 11/04/19 09:54 11/04/19 11:24 11/04/19 12:46 Temperature 98.6 F 98.0 F Pulse Rate 68 58 L 51 L Respiratory Rate 15 22 21 Blood Pressure 143/88 H 133/74 Blood Pressure [Left Arm] 135/79 Pulse Oximetry 100 97 97 MDM - Chest Pain Medical Records Data Attestation: I reviewed the patient's medical records. Lab Data Attestation: I reviewed the patient's lab results. Result diagrams: 11/04/19 10:45 11/04/19 10:45 Labs: Lab Results 11/04/19 11/04/19 11/04/19 Range/Units 10:45 10:45 10:45 WBC 6.4 (4.5-11.0) X10^3/uL RBC 4.21 (4.0-5.2) X10^6/uL Hgb 12.8 (12.0-16.0) g/dL Hct 37.2 (36-46) % MCV 88.3 (80-100) fL MCH 30.3 (26-34) PG MCHC 34.3 (30-36) % RDW 14.6 (11.6-14.8) % Plt Count 287 (150-400) X10^3/uL Neut % (Auto) 64.9 (50-75) % Lymph % (Auto) 23.6 L (25-40) % Whiteside % (Auto) 7.2 (3-14) % Eos % (Auto) 3.6 (2-4) % Baso % (Auto) 0.7 (0-2) % Neut # (Auto) 4200 (0581-6275) /uL Lymph # (Auto) 1500 (6310-5315) /uL Whiteside # (Auto) 500 (0-900) /uL Eos # (Auto) 200 (0-450) /uL Baso # (Auto) 0 (0-100) /uL PT 12.1 (10.1-12.7) SECONDS INR 1.0 (0.9-1.3) APTT 37 H (26.4-36.2) SECONDS Sodium 138 (137-145) mmol/L Potassium 4.3 (3.4-5.1) mmol/L Chloride 107 (98-107) mmol/L Carbon Dioxide 23 (22-32) mmol/L BUN 20 H (7-17) mg/dL Creatinine 0.80 (0.52-1.04) mg/dL Estimated GFR > 60.0 (>60) mL/min BUN/Creatinine Ratio 25.0 H (6-22) Glucose 88 (70-100) mg/dL Calcium 9.3 (8.4-10.2) mg/dL Total Bilirubin 0.3 (0.2-1.3) mg/dL AST 19 (14-36) IU/L ALT 26 (<35) IU/L Alkaline Phosphatase 107 (38-126) U/L Total Creatine Kinase 77 (30-135) U/L CK-MB (CK-2) TNP CK-MB (CK-2) Rel Index TNP Troponin I < 0.012 (0.01-0.034) ng/mL Total Protein 6.3 (6.3-8.2) g/dL Albumin 3.5 (3.5-5.0) g/dL Globulin 2.8 (1.7-4.1) g/dL Albumin/Globulin Ratio 1.3 (1.0-2.8) Lipase 45 (23-300) U/L Urine RBC (0-5/HPF) Urine WBC (0-5/HPF) Ur Squamous Epith Cells (0-5/HPF) Amorphous Sediment Urine Bacteria (None) Ur Culture Indicated? 11/04/19 Range/Units 11:20 WBC (4.5-11.0) X10^3/uL RBC (4.0-5.2) X10^6/uL Hgb (12.0-16.0) g/dL Hct (36-46) % MCV (80-100) fL MCH (26-34) PG MCHC (30-36) % RDW (11.6-14.8) % Plt Count (150-400) X10^3/uL Neut % (Auto) (50-75) % Lymph % (Auto) (25-40) % Whiteside % (Auto) (3-14) % Eos % (Auto) (2-4) % Baso % (Auto) (0-2) % Neut # (Auto) (3381-3238) /uL Lymph # (Auto) (2127-4092) /uL Whiteside # (Auto) (0-900) /uL Eos # (Auto) (0-450) /uL Baso # (Auto) (0-100) /uL PT (10.1-12.7) SECONDS INR (0.9-1.3) APTT (26.4-36.2) SECONDS Sodium (137-145) mmol/L Potassium (3.4-5.1) mmol/L Chloride (98-107) mmol/L Carbon Dioxide (22-32) mmol/L BUN (7-17) mg/dL Creatinine (0.52-1.04) mg/dL Estimated GFR (>60) mL/min BUN/Creatinine Ratio (6-22) Glucose (70-100) mg/dL Calcium (8.4-10.2) mg/dL Total Bilirubin (0.2-1.3) mg/dL AST (14-36) IU/L ALT (<35) IU/L Alkaline Phosphatase (38-126) U/L Total Creatine Kinase (30-135) U/L CK-MB (CK-2) CK-MB (CK-2) Rel Index Troponin I (0.01-0.034) ng/mL Total Protein (6.3-8.2) g/dL Albumin (3.5-5.0) g/dL Globulin (1.7-4.1) g/dL Albumin/Globulin Ratio (1.0-2.8) Lipase (23-300) U/L Urine RBC 1-5/hpf (0-5/HPF) Urine WBC 5-10/hpf H (0-5/HPF) Ur Squamous Epith Cells 10-30 /hpf H (0-5/HPF) Amorphous Sediment 2+ Urine Bacteria Moderate (10-30) H (None) Ur Culture Indicated? Cult not indicated Point of Care Testing Test Results Positive Urine Dip Bedside Urine Glucose Negative Bedside Urine Bilirubin - Negative Bedside Urine Ketone - Negative Urine Specific Lafe 1.010 Bedside Urine Occult Blood +++ Bedside Urine pH 6.5 Bedside Urine Protein + 30 Bedside Urine Urobilinogen - Negative Bedside Urine Nitrite - Negative Bedside Urine Leukocytes +++ 500 Esterase Imaging Data Chest x-ray: Radiologist's Impression: [address] [address] XRay Report Signed Patient: Geoffrey Aponte [facility]#: [id number] : 2000Acct:[id number] Age/Sex: 18 / FDate of Service: 11/04/19 Loc: ED Accession Number: [id number] Procedure: XR chest 1V Ordering Provider: Devang Patrick D.O. PROCEDURE: XR CHEST 1V INDICATIONS: chest pain TECHNIQUE: One view of the chest was acquired. COMPARISON: [facility], , CHEST 2 VIEW, 11/13/2016, 20:53. FINDINGS: Surgical changes and devices: None. Lungs and pleura: Lungs are clear. No pleural effusions or pneumothorax. Mediastinum: Mediastinal contours appear normal. Heart size is normal. Bones and chest wall: No suspicious bony lesions. Overlying soft tissues appear unremarkable. IMPRESSION: No acute cardiopulmonary abnormalities or focal airspace disease. Dictated by: Luis Marx M.D. on 11/04/2019 at 10:41 Approved by: Luis Marx M.D. on 11/04/2019 at 10:42 ECG Data Attestation: I personally reviewed and interpreted this ECG as follows: Prior ECG tracings: not available for review Interpretation: Sinus bradycardia Ventricular rate of 59 Normal axis Normal QRS Normal QTC No ST T wave changes MDM Narrative Medical decision making narrative: Low suspicion for PE. Low suspicion for ACS. Low suspicion for CVA or TIA. Does have a headache. Initial blood pressure slightly elevated however this did improve without any intervention. Does have protein in her urine however also has blood. Rest for labs are unremarkable. Discussed the case with Dr. Farr who was on-call for OB to discuss the potential for preeclampsia. After review of the labs and discussion of the physical exam plan to be is to have the patient take her blood pressure at home and to give good follow-up instructions. Decision was made not to start the patient on antihypertensive medication. Do not feel the patient needs admitted to the hospital. I did discuss all this with the patient. We discussed return precautions and follow-up instructions. She expressed understanding and agreement. Discharge Plan Departure Patient Disposition: Home Clinical Impression: Bradycardia Chest pain Qualifiers: Chest pain type: unspecified Qualified Code(s): R07.9 - Chest pain, unspecified Discharge Date/Time: 11/04/19 12:52 Instructions: Pre-eclampsia Activity Restrictions/Additional Instructions: Take your blood pressure at home like we discussed. Keep all of your scheduled medical appointments. I do recommend that you contact either Dr. holloway or Dr. Farr for follow-up. Return to the emergency department for any new or worsening symptoms Prescriptions: No Action (DME) Double Electric breast Pump and Supplies See Rx Instructions .ROUTE .MEDSUPPLY Qty: 1 RF: 0 Referrals: rFanchesca Farr DO [Primary Care Provider] -
--- NOTE | 2019-11-04 10:45 | PC.NURSE ---
Pt reports throbbing pain 2-3/[address] as where she is experiencing the chest tightness. MD notified and repeat EKG ordered.
[2019-11-04 10:54] LABS: Add Manual Diff / Slide Review NO; Basophils Absolute Auto 0 /uL (0-100); Basophils Percent Auto 0.7 % (0-2); Eosinophils Absolute Auto 200 /uL (0-450); Eosinophils Percent Auto 3.6 % (2-4); Hematocrit 37.2 % (36-46); Hemoglobin 12.8 g/dL (12.0-16.0); Lymphocytes Absolute Auto 1500 /uL (1100-4500); Lymphocytes Percent Auto 23.6 % (25-40); Mean Corpuscular HGB Conc 34.3 % (30-36); Mean Corpuscular Hemoglobin 30.3 PG (26-34); Mean Corpuscular Volume 88.3 fL (80-100); Monocytes Absolute Auto 500 /uL (0-900); Monocytes Percent Auto 7.2 % (3-14); Neutrophils Absolute Auto 4200 /uL (1500-7000); Neutrophils Percent Auto 64.9 % (50-75); Platelet Count 287 X10^3/uL (150-400); Red Blood Cell Count 4.21 X10^6/uL (4.0-5.2); Red Cell Distribution Width 14.6 % (11.6-14.8); White Blood Cell Count 6.4 X10^3/uL (4.5-11.0)
[2019-11-04 11:00] LABS: Prothrombin Time 12.1 SECONDS (10.1-12.7)
[2019-11-04 11:03] LABS: PTT Partial Thromboplastin Tim 37 SECONDS (26.4-36.2)
[2019-11-04 11:05] LABS: Alanine Aminotransferase 26 IU/L (<35); Albumin 3.5 g/dL (3.5-5.0); Albumin Globulin Ratio 1.3 (1.0-2.8); Alkaline Phosphatase 107 U/L (38-126); Aspartate Aminotransferase 19 IU/L (14-36); Bilirubin Total 0.3 mg/dL (0.2-1.3); Blood Urea Nitrogen 20 mg/dL (7-17); Calcium 9.3 mg/dL (8.4-10.2); Carbon Dioxide 23 mmol/L (22-32); Chloride 107 mmol/L (98-107); Creatine Kinase 77 U/L (30-135); Estimated Glomerular Filt Rate > 60.0 mL/min (>60); Globulin 2.8 g/dL (1.7-4.1); Glucose 88 mg/dL (70-100); HEMOLYSIS < 15 (0-50); Lipase 45 U/L (23-300); Potassium 4.3 mmol/L (3.4-5.1); Sodium 138 mmol/L (137-145); Total Protein 6.3 g/dL (6.3-8.2)
[2019-11-04 11:17] LABS: Troponin I < 0.012 ng/mL (0.01-0.034)
[2019-11-04 11:24] VITALS: BP 135/79; PULSE 58; RESP 22; O2SAT 97
--- NOTE | 2019-11-04 11:42 | PC.NURSE ---
Reports chest throbbing/pain resolved after getting up and walking to [facility] and back.
[2019-11-04 11:47] LABS: RBC Urine 1-5/HPF (0-5/HPF); Squamous Epithelial Cell Urine 10-30 /HPF (0-5/HPF); WBC Urine 5-10/HPF (0-5/HPF)
[2019-11-04 11:48] LABS: Amorphous Sediment Urine 2+; Bacteria Urine Moderate (10-30); Culture Indicated Urine Cult Not Indicated
[2019-11-04 12:46] VITALS: BP 133/74; PULSE 51; RESP 21; TEMP 36.7; O2SAT 97
== END 2019-11-04 12:52 | disposition home or self-care (01) ==
PROVIDERS: Emergency Provider Emergency Medicine; PCP Family Medicine
DX: R07.9 Chest pain, unspecified (principal); R00.1 Bradycardia, unspecified; I10 Essential (primary) hypertension
CPT/HCPCS: 36415; 71045; 80053; 81003; 81015; 81025; 82550; 83690; 84484; 85025; 85610; 85730; 93005; 99284

== ENCOUNTER → 2019-12-27 07:06 | Outpatient (CLI) | payer BC, SELFPAY ==
--- NOTE | 2019-12-27 07:07 | DI.MRI.S_ITS ---
PROCEDURE: MR ANGIO HEAD WO CON INDICATIONS: HEADACHES TECHNIQUE: Noncontrast axial 3-D [id number] MR angiogram, with 3-dimensional maximum intensity projection (MIP) reformats of the internal carotid arteries and posterior circulation then performed. COMPARISON: None. FINDINGS: Image quality: Excellent. Anterior circulation: Intracranial internal carotid arteries demonstrate normal size and intraluminal flow signal. The flow within the paired anterior cerebral arteries is normal and symmetric. The flow within the middle cerebral arteries is normal and symmetric. The anterior communicating artery is seen. No stenoses, occlusions, or aneurysms. Posterior circulation: Visualized portions of the vertebral arteries demonstrate normal caliber, right vertebral dominant, and join to form a normal appearing basilar artery. The flow within the posterior cerebral arteries is normal and symmetric. No stenoses, occlusions, or aneurysms. IMPRESSION: Normal for age, source of current headache symptoms is not seen. Dictated by: Audi Mcclain M.D. on 12/27/2019 at 8:17 Approved by: Audi Mcclain M.D. on 12/27/2019 at 8:19
== END ==
PROVIDERS: PCP Family Medicine; Referring Provider Family Medicine; Visit Provider Family Medicine
DX: G44.84 Primary exertional headache (principal)
CPT/HCPCS: 70544

== ENCOUNTER 2020-04-21 06:14 | Observation (INO) | payer BC, SELFPAY ==
[2020-04-21] VITALS (22 sets, daily range): BP systolic 113–157; BP diastolic 58–92; PULSE 51–119; RESP 11–19; TEMP 35.6–37; O2SAT 96–100; BMI 37.6
--- NOTE | 2020-04-21 | PATH_ITS ---
[facility] Accession Number: [id number] . 01 Material submitted: . gallbladder - GALLBLADDER . 01 Clinical history: . EXTREME ABDOMEN PAIN FOR 3 DAYS . 02 Diagnosis: Gallbladder, Cholecystectomy: Gallbladder with cholelithiasis and cholesterolosis. Negative for dysplasia and malignancy. MRV 04/24/2020 1456 Local . 02 Electronically signed: . Suzie Kasper MD, Pathologist NPI- [id number] . 01 Gross description: . The specimen is received in formalin, labeled gallbladder, and consists of a 9.5 x 3.0 x 1.5 cm previously disrupted gallbladder with a 0.3 cm in diameter cystic duct. The serosa is higgins-pink to miranda and smooth. Opening reveals minimal green viscous bile and two higgins choleliths measuring 0.2 cm each. The mucosa is higgins-green and velvety with cholestrolosis. The wall thickness measures 0.1 cm. [employer] Specialist sections are submitted, to include the en face cystic margin (black), body, and fundus in cassette A1. ([id number]) /[facility] 04/22/2020 1634 Local . 02 Pathologist provided ICD-10: K80.60 . 02 CPT . 833747 Performed at: 01 [facility] [address], [place], [place] [id number] MD Michael Dickinson MD Phone: [phone] Performed at: 02 [facility] [address] [place], [place] [id number] MD Suzie Kasper MD Phone: [phone]
--- NOTE | 2020-04-21 06:18 | ED.GENADULT ---
HPI - General Adult General Stated complaint: Extreme abdomen pain for a 3 hours Time Seen by Provider: 04/21/20 06:16 Related Data Previous Rx's Medication Instructions Recorded Double Electric breast Pump and #1 each 08/10/19 Supplies norethindrone (contraceptive) 0.35 0.35 mg PO DAILY #84 tab 11/30/19 mg tablet indomethacin submicronized 20 mg 20 mg PO BID #60 cap 12/27/19 capsule Allergies Allergy/AdvReac Type Severity Reaction Status Date / Time No Known Drug Allergies Allergy Verified 11/30/19 13:56 Patient History Medical History Vaginal delivery Surgical History Hx of tonsillectomy [place] teeth extracted Family History Mother Depression Bipolar 1 disorder Hypertension Hyperlipidemia Father Acquired hypothyroidism Grandfather Diabetes mellitus Grandfather Cancer Alzheimer's dementia Grandmother Cancer Family/Other Myocardial infarction Social History marital status: unmarried,living together household members: significant other pets and animals: Yes (Cats in-house and aware) education level: high school occupational status: student current occupational exposures/hazards: No Previous occupational history: 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
--- NOTE | 2020-04-21 06:19 | ED_ITS ---
HPI - General Adult <DO Juan M Hobbs Last Filed: 04/21/20 18:08> General Chief complaint: Abdominal Pain Stated complaint: Extreme abdomen pain for a 3 hours Time Seen by Provider: 04/21/20 06:16 Source: patient Mode of arrival: Ambulatory Limitations: no limitations History of Present Illness HPI narrative: 19-year-old female who is 6 months here for evaluation of abdominal pain. She reports that the pain started in her epigastrium and upper abdomen approximately 3 hours ago. She has had some nausea but no vomiting. Did wake her from sleep. She had a bowel movement prior to arrival without any change in the pain. No urinary symptoms. She is on the end of her menstrual cycle so she is having some vaginal bleeding. She is not . No prior abdominal surgeries. Has not take anything for symptoms prior to arrival. She states that her symptoms have improved somewhat since the onset of Related Data Previous Rx's Medication Instructions Recorded Double Electric breast Pump and #1 each 08/10/19 Supplies norethindrone (contraceptive) 0.35 0.35 mg PO DAILY #84 tab 11/30/19 mg tablet indomethacin submicronized 20 mg 20 mg PO BID #60 cap 12/27/19 capsule Allergies Allergy/AdvReac Type Severity Reaction Status Date / Time No Known Drug Allergies Allergy Verified 11/30/19 13:56 Review of Systems <DO Juan M Hobbs Last Filed: 04/21/20 18:08> Constitutional Constitutional: Denies fever(s) and Denies headache(s) ENT Ears, Nose, Mouth, and Throat: Denies headache(s) Cardiovascular Cardiovascular: Denies chest pain and Denies dyspnea Respiratory Respiratory: Denies dyspnea Gastrointestinal Gastrointestinal: Reports abdominal pain, Denies change in bowel habits, Reports nausea and Denies vomiting Genitourinary Genitourinary: Denies dysuria Genitourinary: Denies dysuria and Reports vaginal discharge (Menstrual cycle) Musculoskeletal Musculoskeletal: Denies arthralgias and Denies myalgias Integumentary/Breasts Skin/Breast: Denies rash Neurologic Neurologic: Denies behavioral changes and Denies headache(s) Psychiatric Psychiatric: Denies behavioral changes Hematologic/Lymphatic Hematologic/Lymphatic: Denies easy bleeding and Denies easy bruising Allergic/Immunologic Allergic/Immunologic: Denies urticaria Patient History <DO Juan M Hobbs Last Filed: 04/21/20 18:08> Medical History (Updated 04/21/20 @ 11:34 by Mackenzie Ledezma MD) Vaginal delivery Surgical History Hx of tonsillectomy [place] teeth extracted Family History Mother Depression Bipolar 1 disorder Hypertension Hyperlipidemia Father Acquired hypothyroidism Grandfather Diabetes mellitus Grandfather Cancer Alzheimer's dementia Grandmother Cancer Family/Other Myocardial infarction Social History marital status: unmarried,living together household members: significant other pets and animals: Yes (Cats in-house and aware) education level: high school occupational status: student current occupational exposures/hazards: No Previous occupational history: Considering 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- [employer] special issa needs: No travel history: recent leisure activities: exercise (walks) Smoking Status: Never smoker second hand exposure: No alcohol intake: never Smoking Status: Never smoker Exam <Devang Patrick DO - Last Filed: 04/21/20 18:08> Initial Vital Signs Initial Vital Signs: Vital Signs Temperature 97.5 F L 04/21/20 06:22 Pulse Rate 106 H 04/21/20 06:22 Respiratory Rate 16 04/21/20 06:22 Blood Pressure 157/86 H 04/21/20 06:22 Pulse Oximetry 97 04/21/20 06:22 Const General: cooperative and comfortable Limitations: mental status not altered HENMT Head: normal to inspection and normocephalic Resp Effort & Inspection: normal respiratory effort Auscultation: clear to auscultation bilaterally Cardio Rate: regular rate Rhythm: regular rhythm GI Inspection: non-distended Palpation: soft, No firm and tender (Upper abdomen) Skin Lesions: no lesions Rashes: no rashes Neuro General: patient alert, patient awake and patient oriented x3 Cognition: normal cognition Speech: speech normal Extrem General: normal to inspection and capillary refill normal Psych Appearance: grossly normal and well kempt <Anneliese Aviles MD - Last Filed: 04/21/20 10:18> Initial Vital Signs Initial Vital Signs: Vital Signs Temperature 97.5 F L 04/21/20 06:22 Pulse Rate 106 H 04/21/20 06:22 Respiratory Rate 16 04/21/20 06:22 Blood Pressure 157/86 H 04/21/20 06:22 Pulse Oximetry 97 04/21/20 06:22 Course <Devang Patrick DO - Last Filed: 04/21/20 18:08> Orders Ordered: Acetaminophen (Acetaminophen 325 Mg Tablet) 650 mg PO Q6HR PRN PRN Reason: Fever/Mild Pain (1-3) Last Admin: 04/21/20 16:04 Dose: 650 mg Documented by: DEREK Docusate Sodium (Docusate 100 Mg Capsule) 100 mg PO BID MAGALI Hydromorphone HCl (Hydromorphone 0.5 Mg Inj) 0.5 mg IV Q4HR PRN PRN Reason: Pain, Severe (7-10) Lactated Ringer's (Lactated Ringers) 1,000 mls @ 100 mls/hr IV CONT MAGALI Last Infusion: 04/21/20 14:28 Dose: 0 mls/hr Documented by: Admin: 04/21/20 13:55 Dose: 100 mls/hr Documented by: Infusion: 04/21/20 13:55 Dose: 100 mls/hr Documented by: Admin: 04/21/20 11:20 Dose: 100 mls/hr Documented by: RUPERT Influenza Virus Vaccine (Influenza Vaccine 0.5 Ml Syringe) 0.5 ml IM .ONCE ONE Stop: 04/22/20 09:01 Morphine Sulfate (Morphine 2 Mg/Ml Inj) 2 mg IV Q4HR PRN PRN Reason: Pain, Moderate (4-6) Naloxone HCl (Naloxone 0.4 Mg/Ml Vial) 0.2 mg IV Q2MIN PRN PRN Reason: Opiate Reversal Ondansetron HCl (Ondansetron 4 Mg/2 Ml Inj) 4 mg IV Q4HR PRN PRN Reason: Nausea And Vomiting Last Admin: 04/21/20 17:14 Dose: 4 mg Documented by: DEREK Oxycodone HCl (Oxycodone Ir 5 Mg Tablet) 5 mg PO Q4HR PRN PRN Reason: Pain, Moderate (4-6) Discontinued Medications Bupivacaine HCl/Epinephrine Bitart (Bupivacaine 0.5% W/ Epi (Pf) 30 Ml Vial) 30 ml INJ NOW ONE Stop: 04/21/20 12:42 Last Admin: 04/21/20 13:33 Dose: 30 ml Documented by: Admin: 04/21/20 12:41 Dose: 30 ml Documented by: PAUL Fentanyl (Fentanyl 100 Mcg/2 Ml Inj) 0 mcg IV Q5M PRN PRN Reason: Pain, Moderate (4-6) Hydromorphone HCl (Hydromorphone 1 Mg Inj) 0.5 mg IV Q4HR PRN PRN Reason: Pain, Severe (7-10) Hydromorphone HCl (Hydromorphone 2 Mg Inj) 0 mg IV Q5M PRN PRN Reason: Pain, Severe (7-10) Sodium Chloride (Normal Saline 0.9%) 1,000 mls @ 150 mls/hr IV CONT [facility] Last Admin: 04/21/20 15:38 Dose: Not Given Documented by: DEREK Piperacillin/Tazobactam/Dextrose (Zosyn) 3.375 gm in 50 mls @ 100 mls/hr IV NOW ONE Stop: 04/21/20 13:09 Last Admin: 04/21/20 11:50 Dose: 100 mls/hr Documented by: MIGUE Metoclopramide HCl (Metoclopramide 10 Mg/2 Ml Inj) 10 mg IV NOW PRN PRN Reason: Nausea And Vomiting Non-Formulary Medication (Indocyanine) 25 mg IV PREOP [facility] Last Admin: 04/21/20 12:43 Dose: 25 mg Documented by: MIGUE Ondansetron HCl (Ondansetron 4 Mg/2 Ml Inj) 4 mg IV NOW PRN PRN Reason: Nausea And Vomiting Oxycodone/Acetaminophen (Oxycodone/Acetaminophen 5/325 Tablet) 1 tab PO PACUNOW PRN PRN Reason: Mild or Moderate Pain Vital Signs Vital signs: Vital Signs - 8 hr 04/21/20 06:22 04/21/20 07:24 04/21/20 07:30 Temperature 97.5 F L Pulse Rate 106 H 64 66 Respiratory Rate 16 Blood Pressure 157/86 H Pulse Oximetry 97 99 98 04/21/20 08:00 04/21/20 08:30 Temperature Pulse Rate 59 L 51 L Respiratory Rate Blood Pressure Pulse Oximetry 99 96 <Anneliese Aviles MD - Last Filed: 04/21/20 10:18> Course Course Narrative: Care is assumed from Dr. Patrick. 19-year-old woman presents with acute onset severe right upper quadrant and generalized abdominal pain st arting approximately 230 this morning. Has subsided somewhat but still coming in waves. No fevers or vomiting. Ultrasound shows mild hepatomegaly mild fatty infiltrate and several gallstones 1 5 cm stone it seems to be lodged in the neck of the gallbladder. Positive Patel sign. Gallbladder wall measures 1.5. Common bile duct is 3.6 mm. No elevated alkaline phosphatase or bilirubin. Transaminases are essentially normal. She is currently finishing her menstrual cycle and takes control pills. Last meal was at 10:00 p.m. last night. Pt is seen by Dr Ledezma and will be admitted in anticipation of surgical intervention later today. Orders Ordered: Acetaminophen (Acetaminophen 325 Mg Tablet) 650 mg PO Q6HR PRN PRN Reason: Fever/Mild Pain (1-3) Last Admin: 04/21/20 16:04 Dose: 650 mg Documented by: DEREK Docusate Sodium (Docusate 100 Mg Capsule) 100 mg PO BID MAGALI Hydromorphone HCl (Hydromorphone 0.5 Mg Inj) 0.5 mg IV Q4HR PRN PRN Reason: Pain, Severe (7-10) Lactated Ringer's (Lactated Ringers) 1,000 mls @ 100 mls/hr IV CONT MAGALI Last Infusion: 04/21/20 14:28 Dose: 0 mls/hr Documented by: Admin: 04/21/20 13:55 Dose: 100 mls/hr Documented by: Infusion: 04/21/20 13:55 Dose: 100 mls/hr Documented by: Admin: 04/21/20 11:20 Dose: 100 mls/hr Documented by: RUPERT Influenza Virus Vaccine (Influenza Vaccine 0.5 Ml Syringe) 0.5 ml IM .ONCE ONE Stop: 04/22/20 09:01 Morphine Sulfate (Morphine 2 Mg/Ml Inj) 2 mg IV Q4HR PRN PRN Reason: Pain, Moderate (4-6) Naloxone HCl (Naloxone 0.4 Mg/Ml Vial) 0.2 mg IV Q2MIN PRN PRN Reason: Opiate Reversal Ondansetron HCl (Ondansetron 4 Mg/2 Ml Inj) 4 mg IV Q4HR PRN PRN Reason: Nausea And Vomiting Last Admin: 04/21/20 17:14 Dose: 4 mg Documented by: DEREK Oxycodone HCl (Oxycodone Ir 5 Mg Tablet) 5 mg PO Q4HR PRN PRN Reason: Pain, Moderate (4-6) Discontinued Medications Bupivacaine HCl/Epinephrine Bitart (Bupivacaine 0.5% W/ Epi (Pf) 30 Ml Vial) 30 ml INJ NOW ONE Stop: 04/21/20 12:42 Last Admin: 04/21/20 13:33 Dose: 30 ml Documented by: Admin: 04/21/20 12:41 Dose: 30 ml Documented by: PAUL Fentanyl (Fentanyl 100 Mcg/2 Ml Inj) 0 mcg IV Q5M PRN PRN Reason: Pain, Moderate (4-6) Hydromorphone HCl (Hydromorphone 1 Mg Inj) 0.5 mg IV Q4HR PRN PRN Reason: Pain, Severe (7-10) Hydromorphone HCl (Hydromorphone 2 Mg Inj) 0 mg IV Q5M PRN PRN Reason: Pain, Severe (7-10) Sodium Chloride (Normal Saline 0.9%) 1,000 mls @ 150 mls/hr IV CONT MAGALI Last Admin: 04/21/20 15:38 Dose: Not Given Documented by: DEREK Piperacillin/Tazobactam/Dextrose (Zosyn) 3.375 gm in 50 mls @ 100 mls/hr IV NOW ONE Stop: 04/21/20 13:09 Last Admin: 04/21/20 11:50 Dose: 100 mls/hr Documented by: MIGUE Metoclopramide HCl (Metoclopramide 10 Mg/2 Ml Inj) 10 mg IV NOW PRN PRN Reason: Nausea And Vomiting Non-Formulary Medication (Indocyanine) 25 mg IV PREOP MAGALI Last Admin: 04/21/20 12:43 Dose: 25 mg Documented by: MIGUE Ondansetron HCl (Ondansetron 4 Mg/2 Ml Inj) 4 mg IV NOW PRN PRN Reason: Nausea And Vomiting Oxycodone/Acetaminophen (Oxycodone/Acetaminophen 5/325 Tablet) 1 tab PO PACUNOW PRN PRN Reason: Mild or Moderate Pain Vital Signs Vital signs: Vital Signs - 8 hr 04/21/20 06:22 04/21/20 07:24 04/21/20 07:30 Temperature 97.5 F L Pulse Rate 106 H 64 66 Respiratory Rate 16 Blood Pressure 157/86 H Pulse Oximetry 97 99 98 04/21/20 08:00 04/21/20 08:30 Temperature Pulse Rate 59 L 51 L Respiratory Rate Blood Pressure Pulse Oximetry 99 96 Medical Decision Making <Devang Patrick DO - Last Filed: 04/21/20 18:08> Lab Data Result diagrams: 04/21/20 06:34 04/21/20 06:34 Labs: Lab Results 04/21/20 04/21/20 04/21/20 Range/Units 06:34 06:34 06:50 WBC 8.9 (4.5-11.0) X10^3/uL RBC 4.66 (4.0-5.2) X10^6/uL Hgb 13.8 (12.0-16.0) g/dL Hct 41.1 (36-46) % MCV 88.1 (80-100) fL MCH 29.6 (26-34) PG MCHC 33.6 (30-36) % RDW 13.4 (11.6-14.8) % Plt Count 235 (150-400) X10^3/uL Neut % (Auto) 55.7 (50-75) % Lymph % (Auto) 32.8 (25-40) % [place] % (Auto) 8.7 (3-14) % Eos % (Auto) 1.8 L (2-4) % Baso % (Auto) 1.0 (0-2) % Neut # (Auto) 5000 (7782-7836) /uL Lymph # (Auto) 2900 (3615-9997) /uL [place] # (Auto) 800 (0-900) /uL Eos # (Auto) 200 (0-450) /uL Baso # (Auto) 100 (0-100) /uL Sodium 138 (137-145) mmol/L Potassium 4.2 (3.4-5.1) mmol/L Chloride 102 (98-107) mmol/L Carbon Dioxide 32 (22-32) mmol/L BUN 20 H (7-17) mg/dL Creatinine 0.83 (0.52-1.04) mg/dL Estimated GFR > 60.0 (>60) mL/min BUN/Creatinine Ratio 24.1 H (6-22) Glucose 98 (70-100) mg/dL Calcium 10.1 (8.4-10.2) mg/dL Total Bilirubin 0.4 (0.2-1.3) mg/dL AST 40 H (14-36) IU/L ALT 34 (<35) IU/L Alkaline Phosphatase 77 (38-126) U/L Total Protein 7.6 (6.3-8.2) g/dL Albumin 4.3 (3.5-5.0) g/dL Globulin 3.3 (1.7-4.1) g/dL Albumin/Globulin Ratio 1.3 (1.0-2.8) Lipase 64 (23-300) U/L Urine RBC 5-10/hpf H (0-5/HPF) Urine WBC None seen (0-5/HPF) Ur Squamous Epith Cells 1-5 /hpf D (0-5/HPF) Urine Bacteria None seen (None) Ur Culture Indicated? Cult not indicated COVID-19 PCR (Negative) 04/21/20 Range/Units 07:40 WBC (4.5-11.0) X10^3/uL RBC (4.0-5.2) X10^6/uL Hgb (12.0-16.0) g/dL Hct (36-46) % MCV (80-100) fL MCH (26-34) PG MCHC (30-36) % RDW (11.6-14.8) % Plt Count (150-400) X10^3/uL Neut % (Auto) (50-75) % Lymph % (Auto) (25-40) % [place] % (Auto) (3-14) % Eos % (Auto) (2-4) % Baso % (Auto) (0-2) % Neut # (Auto) (0284-5800) /uL Lymph # (Auto) (8503-7746) /uL [place] # (Auto) (0-900) /uL Eos # (Auto) (0-450) /uL Baso # (Auto) (0-100) /uL Sodium (137-145) mmol/L Potassium (3.4-5.1) mmol/L Chloride (98-107) mmol/L Carbon Dioxide (22-32) mmol/L BUN (7-17) mg/dL Creatinine (0.52-1.04) mg/dL Estimated GFR (>60) mL/min BUN/Creatinine Ratio (6-22) Glucose (70-100) mg/dL Calcium (8.4-10.2) mg/dL Total Bilirubin (0.2-1.3) mg/dL AST (14-36) IU/L ALT (<35) IU/L Alkaline Phosphatase (38-126) U/L Total Protein (6.3-8.2) g/dL Albumin (3.5-5.0) g/dL Globulin (1.7-4.1) g/dL Albumin/Globulin Ratio (1.0-2.8) Lipase (23-300) U/L Urine RBC (0-5/HPF) Urine WBC (0-5/HPF) Ur Squamous Epith Cells (0-5/HPF) Urine Bacteria (None) Ur Culture Indicated? COVID-19 PCR Negative (Negative) Point of Care Testing Test Results Negative Urine Dip Bedside Urine Glucose Negative Bedside Urine Bilirubin - Negative Bedside Urine Ketone - Negative Urine Specific [place] 1.025 Bedside Urine Occult Blood +++ Bedside Urine pH 6.0 Bedside Urine Protein - Negative Bedside Urine Urobilinogen - Negative Bedside Urine Nitrite - Negative Bedside Urine Leukocytes - Negative Esterase Point of care testing: Point of Care Testing Test Results Negative Urine Dip Bedside Urine Glucose Negative Bedside Urine Bilirubin - Negative Bedside Urine Ketone - Negative Urine Specific [place] 1.025 Bedside Urine Occult Blood +++ Bedside Urine pH 6.0 Bedside Urine Protein - Negative Bedside Urine Urobilinogen - Negative Bedside Urine Nitrite - Negative Bedside Urine Leukocytes - Negative Esterase [facility] Narrative Medical decision making narrative: Patient is 6 months . She still has her gallbladder. Her pain has improved somewhat since the onset. Does seem to be epigastrium and right upper quadrant. Patient denied the need for any nausea or pain medication. Labs ordered. Right upper quadrant ultrasound ordered. Care turned over to day provider change of shift to follow up and disposition. <Anneliese Aviles MD - Last Filed: 04/21/20 10:18> Medical Records Medical records reviewed: Yes I reviewed the patient's medical records. Lab Data Lab results reviewed: Yes I reviewed the patient's lab results. Labs: Lab Results 04/21/20 04/21/20 04/21/20 Range/Units 06:34 06:34 06:50 WBC 8.9 (4.5-11.0) X10^3/uL RBC 4.66 (4.0-5.2) X10^6/uL Hgb 13.8 (12.0-16.0) g/dL Hct 41.1 (36-46) % MCV 88.1 (80-100) fL MCH 29.6 (26-34) PG MCHC 33.6 (30-36) % RDW 13.4 (11.6-14.8) % Plt Count 235 (150-400) X10^3/uL Neut % (Auto) 55.7 (50-75) % Lymph % (Auto) 32.8 (25-40) % [place] % (Auto) 8.7 (3-14) % Eos % (Auto) 1.8 L (2-4) % Baso % (Auto) 1.0 (0-2) % Neut # (Auto) 5000 (1359-2209) /uL Lymph # (Auto) 2900 (5924-3110) /uL [place] # (Auto) 800 (0-900) /uL Eos # (Auto) 200 (0-450) /uL Baso # (Auto) 100 (0-100) /uL Sodium 138 (137-145) mmol/L Potassium 4.2 (3.4-5.1) mmol/L Chloride 102 (98-107) mmol/L Carbon Dioxide 32 (22-32) mmol/L BUN 20 H (7-17) mg/dL Creatinine 0.83 (0.52-1.04) mg/dL Estimated GFR > 60.0 (>60) mL/min BUN/Creatinine Ratio 24.1 H (6-22) Glucose 98 (70-100) mg/dL Calcium 10.1 (8.4-10.2) mg/dL Total Bilirubin 0.4 (0.2-1.3) mg/dL AST 40 H (14-36) IU/L ALT 34 (<35) IU/L Alkaline Phosphatase 77 (38-126) U/L Total Protein 7.6 (6.3-8.2) g/dL Albumin 4.3 (3.5-5.0) g/dL Globulin 3.3 (1.7-4.1) g/dL Albumin/Globulin Ratio 1.3 (1.0-2.8) Lipase 64 (23-300) U/L Urine RBC 5-10/hpf H (0-5/HPF) Urine WBC None seen (0-5/HPF) Ur Squamous Epith Cells 1-5 /hpf D (0-5/HPF) Urine Bacteria None seen (None) Ur Culture Indicated? Cult not indicated COVID-19 PCR (Negative) 04/21/20 Range/Units 07:40 WBC (4.5-11.0) X10^3/uL RBC (4.0-5.2) X10^6/uL Hgb (12.0-16.0) g/dL Hct (36-46) % MCV (80-100) fL MCH (26-34) PG MCHC (30-36) % RDW (11.6-14.8) % Plt Count (150-400) X10^3/uL Neut % (Auto) (50-75) % Lymph % (Auto) (25-40) % [place] % (Auto) (3-14) % Eos % (Auto) (2-4) % Baso % (Auto) (0-2) % Neut # (Auto) (7430-1063) /uL Lymph # (Auto) (9980-6852) /uL [place] # (Auto) (0-900) /uL Eos # (Auto) (0-450) /uL Baso # (Auto) (0-100) /uL Sodium (137-145) mmol/L Potassium (3.4-5.1) mmol/L Chloride (98-107) mmol/L Carbon Dioxide (22-32) mmol/L BUN (7-17) mg/dL Creatinine (0.52-1.04) mg/dL Estimated GFR (>60) mL/min BUN/Creatinine Ratio (6-22) Glucose (70-100) mg/dL Calcium (8.4-10.2) mg/dL Total Bilirubin (0.2-1.3) mg/dL AST (14-36) IU/L ALT (<35) IU/L Alkaline Phosphatase (38-126) U/L Total Protein (6.3-8.2) g/dL Albumin (3.5-5.0) g/dL Globulin (1.7-4.1) g/dL Albumin/Globulin Ratio (1.0-2.8) Lipase (23-300) U/L Urine RBC (0-5/HPF) Urine WBC (0-5/HPF) Ur Squamous Epith Cells (0-5/HPF) Urine Bacteria (None) Ur Culture Indicated? COVID-19 PCR Negative (Negative) Point of Care Testing Test Results Negative Urine Dip Bedside Urine Glucose Negative Bedside Urine Bilirubin - Negative Bedside Urine Ketone - Negative Urine Specific [place]anner 1.025 Bedside Urine Occult Blood +++ Bedside Urine pH 6.0 Bedside Urine Protein - Negative Bedside Urine Urobilinogen - Negative Bedside Urine Nitrite - Negative Bedside Urine Leukocytes - Negative Esterase Point of care testing: Point of Care Testing Test Results Negative Urine Dip Bedside Urine Glucose Negative Bedside Urine Bilirubin - Negative Bedside Urine Ketone - Negative Urine Specific [place] 1.025 Bedside Urine Occult Blood +++ Bedside Urine pH 6.0 Bedside Urine Protein - Negative Bedside Urine Urobilinogen - Negative Bedside Urine Nitrite - Negative Bedside Urine Leukocytes - Negative Esterase Imaging Data US - abdomen: My Impression: preliminary per tech: Liver with increased echogenicity, mild fatty infiltrate Gallbladder has sludge several stones 1 of which is 5 cm and nonmobile lodged in the neck of the gallbladder. Gallbladder wall is 1.5 mm. Positive Patel sign negative pericholecystic fluid Biliary tree is within normal limits with a common bile duct at 3.6 mm Pancreas is unremarkable MDM Narrative Medical decision making narrative: 830 care is reviewed with Dr. Harris. Patient does understand that there is the potential for her gallbladder to relax in the stone to fall back into the fundus and pain to resolve. At this point she is continuing to have an uncomfortable level of pain but not requesting any pain medication. Will discuss options with Dr. Harris when she is able to see the patient in between her OR cases. Discharge Plan Departure Patient Disposition: Admitted as Observation Clinical Impression: Cholelithiases Qualifiers: Cholelithiasis location: gallbladder Cholecystitis presence: without cholecystitis Biliary obstruction: with biliary obstruction Qualified Code(s): K80.21 - Calculus of gallbladder without cholecystitis with obstruction Admit Date/Time: 04/21/20 09:12 Admit Provider: Mackenzie Ledezma
--- NOTE | 2020-04-21 06:26 | DI.US.S_ITS ---
PROCEDURE: US ABDOMEN LIMITED INDICATIONS: RUQ PAIN TECHNIQUE: Real-time focused scanning was performed of the abdomen, with image documentation. COMPARISON: [facility], US, ABDOMEN COMPLETE, 03/04/2014, 7:36. [facility], US, ABDOMEN COMPLETE, 11/13/2016, 22:18. FINDINGS: Small nonmobile gallstones are noted in the gallbladder neck. No gallbladder wall thickening or pericholecystic fluid. There is positive sonographic Patel's sign. Liver is mildly enlarged measuring 20.1 cm in size. There is diffuse increased hepatic echotexture. Common bile duct is normal in caliber measuring 3.6 mm. Visualized pancreas is normal. IMPRESSION: 1. Cholelithiasis with small nonmobile gallstones in the gallbladder neck. There is positive sonographic Patel sign but no gallbladder wall thickening or pericholecystic fluid collection. 3. Mild hepatomegaly. Diffusely increased hepatic echotexture. This finding is most likely secondary to hepatic fatty infiltration although other hepatocellular disease may have a similar appearance. Recommend clinical correlation. Dictated by: Jeanne Blackman M.D. on 04/21/2020 at 9:12 Approved by: Jeanne Blackman M.D. on 04/21/2020 at 9:17
[2020-04-21 06:43] LABS: Hematocrit 41.1 % (36-46); Hemoglobin 13.8 g/dL (12.0-16.0); Mean Corpuscular Hemoglobin 29.6 PG (26-34); Mean Corpuscular Volume 88.1 fL (80-100); Red Blood Cell Count 4.66 X10^6/uL (4.0-5.2); White Blood Cell Count 8.9 X10^3/uL (4.5-11.0)
[2020-04-21 06:44] LABS: Add Manual Diff / Slide Review NO; Basophils Absolute Auto 100 /uL (0-100); Eosinophils Absolute Auto 200 /uL (0-450); Eosinophils Percent Auto 1.8 % (2-4); Lymphocytes Absolute Auto 2900 /uL (1100-4500); Lymphocytes Percent Auto 32.8 % (25-40); Mean Corpuscular HGB Conc 33.6 % (30-36); Monocytes Absolute Auto 800 /uL (0-900); Monocytes Percent Auto 8.7 % (3-14); Neutrophils Absolute Auto 5000 /uL (1500-7000); Neutrophils Percent Auto 55.7 % (50-75); Platelet Count 235 X10^3/uL (150-400); Red Cell Distribution Width 13.4 % (11.6-14.8)
[2020-04-21 06:53] LABS: Alanine Aminotransferase 34 IU/L (<35); Albumin 4.3 g/dL (3.5-5.0); Albumin Globulin Ratio 1.3 (1.0-2.8); Alkaline Phosphatase 77 U/L (38-126); Aspartate Aminotransferase 40 IU/L (14-36); BUN Creatinine Ratio 24.1 (6-22); Bilirubin Total 0.4 mg/dL (0.2-1.3); Blood Urea Nitrogen 20 mg/dL (7-17); Calcium 10.1 mg/dL (8.4-10.2); Carbon Dioxide 32 mmol/L (22-32); Chloride 102 mmol/L (98-107); Estimated Glomerular Filt Rate > 60.0 mL/min (>60); Globulin 3.3 g/dL (1.7-4.1); Glucose 98 mg/dL (70-100); HEMOLYSIS < 15 (0-50); Lipase 64 U/L (23-300); Potassium 4.2 mmol/L (3.4-5.1); Sodium 138 mmol/L (137-145); Total Protein 7.6 g/dL (6.3-8.2)
[2020-04-21 07:05] LABS: Bacteria Urine None Seen; WBC Urine None Seen (0-5/HPF)
[2020-04-21 07:13] LABS: Culture Indicated Urine Cult Not Indicated; RBC Urine 5-10/HPF (0-5/HPF); Squamous Epithelial Cell Urine 1-5 /HPF (0-5/HPF)
[2020-04-21 08:02] LABS: COVID19 -Nasal RAPID Negative (Negative)
--- NOTE | 2020-04-21 09:31 | P.HP_ITS ---
History of Present Illness History of Present Illness Date Patient Seen: 04/21/20 Time Patient Seen: 10:08 Chief complaint: Extreme abdomen pain for a 3 hours Narrative: This is a 19-year-old woman with history of obesity (BMI 38), and is 6 months . She came into the ER this morning with severe right upper quadrant pain was found to have a gallstone lodged in the neck of her gallbladder. She says she has not had any significant biliary colic symptoms in the past, although she may have had some nagging right upper quadrant pain from time to time. Right upper quadrant ultrasound shows a gallstone, but no pericholecystic fluid and no gallbladder thickening. The bile ducts appear to be normal in caliber. She has no elevated white count, and normal LFTs. She denies other significant health problems, and so she only takes control pills. ROS: Thirteen system review is otherwise negative other than as mentioned below and in HPI. PE: GENERAL: Well groomed and cooperative. Obese. Appears stated age. Answers questions promptly and appropriately. Vital signs noted. HENT: Normocephalic, atraumatic. Hearing intact. EYES: Conjunctiva pink, sclera white, no periorbital swelling. CARDIOVASCULAR: Regular rate. No pedal edema. RESPIRATORY: Non-tachypneic, breathing comfortably on room air. GASTROINTESTINAL: Abdomen soft and non-distended; mild tenderness to palpation in the epigastrium, and right upper quadrant GENITALURINARY: No flank tenderness. MUSCULOSKELETAL: Equal tone and mass bilaterally. SKIN: Warm, dry, soft, appropriate color for ethnicity. No other lesions, rashes, or wounds. NEURO: Alert and Oriented X 3. No gross sensory deficits, or cognitive issues. PSYCH: Appropriate affect and mood. Patient History Medical History (Updated 04/21/20 @ 11:34 by Mackenzie Ledezma MD) Vaginal delivery Surgical History Hx of tonsillectomy [place] teeth extracted Family & Social History Family History Mother Depression Bipolar 1 disorder Hypertension Hyperlipidemia Father Acquired hypothyroidism Grandfather Diabetes mellitus Grandfather Cancer Alzheimer's dementia Grandmother Cancer Family/Other Myocardial infarction Social History: household members significant other Safety & Behavioral: Feels Safe in Current Yes Environment Been Physically Hurt or No Threatened By a Person Tobacco & Substance use: Smoking Status Never smoker Meds Home Medications and Allergies Home Medications Medication Instructions Recorded Confirmed Type Double Electric breast Pump and #1 each 08/10/19 12/23/19 Rx Supplies norethindrone (contraceptive) 0.35 0.35 mg PO DAILY #84 tab 11/30/19 12/23/19 Rx mg tablet indomethacin submicronized 20 mg 20 mg PO BID #60 cap 12/27/19 Rx capsule Allergies Allergy/AdvReac Type Severity Reaction Status Date / Time No Known Drug Allergies Allergy Verified 11/30/19 13:56 Exam Vital Signs (past 8 hours): - 04/21/20 06:22 04/21/20 07:24 04/21/20 07:30 Temperature 97.5 F L Pulse Rate 106 H 64 66 Respiratory Rate 16 Blood Pressure 157/86 H Pulse Oximetry 97 99 98 04/21/20 08:00 04/21/20 08:30 Temperature Pulse Rate 59 L 51 L Respiratory Rate Blood Pressure Pulse Oximetry 99 96 Oxygen Delivery Method Room Air Objective Imaging US - abdomen: Radiologist's impression: [address] [id number] ReportSigned Patient: Geoffrey Aponte [facility]#: [id number]: 2000Acct:[id number]/Sex: 19 / FDate of Service: 04/21/20Loc: [id number] Number: [id number] Procedure: US abdomen limited Ordering Provider: Devang Patrick D.O. PROCEDURE: US ABDOMEN LIMITED INDICATIONS: RUQ PAIN TECHNIQUE: Real-time focused scanning was performed of the abdomen, with image documentation. COMPARISON: [facility] US, ABDOMEN COMPLETE, 03/04/2014, 7:36. [facility] US, ABDOMEN COMPLETE, 11/13/2016, 22:18. FINDINGS: Small nonmobile gallstones are noted in the gallbladder neck. No gallbladder wall thickening or pericholecystic fluid. There is positive sonographic Patel's sign. Liver is mildly enlarged measuring 20.1 cm in size. There is diffuse increased hepatic echotexture. Common bile duct is normal in caliber measuring 3.6 mm. Visualized pancreas is normal. IMPRESSION: 1. Cholelithiasis with small nonmobile gallstones in the gallbladder neck. There is positive sonographic Patel sign but no gallbladder wall thickening or pericholecystic fluid collection. 3. Mild hepatomegaly. Diffusely increased hepatic echotexture. This finding is most likely secondary to hepatic fatty infiltration although other hepatocellular disease may have a similar appearance. Recommend clinical correlation. Dictated by: Jeanne Blackman M.D. on 04/21/2020 at 9:12 Approved by: Jeanne Blackman M.D. on 04/21/2020 at 9:17 Labs Result Diagrams: 04/21/20 06:34 04/21/20 06:34 Labs: Laboratory Results - last 24 hr 04/21/20 04/21/20 04/21/20 06:34 06:34 06:50 WBC 8.9 RBC 4.66 Hgb 13.8 Hct 41.1 MCV 88.1 MCH 29.6 MCHC 33.6 RDW 13.4 Plt Count 235 Neut % (Auto) 55.7 Lymph % (Auto) 32.8 Baxter % (Auto) 8.7 Eos % (Auto) 1.8 L Baso % (Auto) 1.0 Neut # (Auto) 5000 Lymph # (Auto) 2900 Baxter # (Auto) 800 Eos # (Auto) 200 Baso # (Auto) 100 Sodium 138 Potassium 4.2 Chloride 102 Carbon Dioxide 32 BUN 20 H Creatinine 0.83 Estimated GFR > 60.0 BUN/Creatinine Ratio 24.1 H Glucose 98 Calcium 10.1 Total Bilirubin 0.4 AST 40 H ALT 34 Alkaline Phosphatase 77 Total Protein 7.6 Albumin 4.3 Globulin 3.3 Albumin/Globulin Ratio 1.3 Lipase 64 Urine RBC 5-10/hpf H Urine WBC None seen Ur Squamous Epith Cells 1-5 /hpf D Urine Bacteria None seen Ur Culture Indicated? Cult not indicated COVID-19 PCR 04/21/20 07:40 WBC RBC Hgb Hct MCV MCH MCHC RDW Plt Count Neut % (Auto) Lymph % (Auto) Baxter % (Auto) Eos % (Auto) Baso % (Auto) Neut # (Auto) Lymph # (Auto) Baxter # (Auto) Eos # (Auto) Baso # (Auto) Sodium Potassium Chloride Carbon Dioxide BUN Creatinine Estimated GFR BUN/Creatinine Ratio Glucose Calcium Total Bilirubin AST ALT Alkaline Phosphatase Total Protein Albumin Globulin Albumin/Globulin Ratio Lipase Urine RBC Urine WBC Ur Squamous Epith Cells Urine Bacteria Ur Culture Indicated? COVID-19 PCR Negative Assessment & Plan Assessment and plan (1) Cholelithiases: Qualifiers: Biliary obstruction: with biliary obstruction Cholecystitis presence: without cholecystitis Cholelithiasis location: gallbladder Qualified Code(s): K80.21 - Calculus of gallbladder without cholecystitis with obstruction Status: Acute (2) Acute LUQ pain: Status: Acute (3) Biliary colic: Status: Acute (4) RUQ pain: Status: Acute (5) Obesity (BMI 35.0-39.9 without comorbidity): Status: Acute Assessment & Plan narrative: This is a 19-year-old woman who has acute biliary colic, with labs and imaging consistent with a gallstone impacted in her cystic duct. Risks and benefits of laparoscopic possible open cholecystectomy was discussed with the patient her significant other. Risks including bleeding, infection, damage to nearby structures, bile leak, bile duct injury, need for open surgery, need for additional procedures, need for transfer to a tertiary center, post cholecystectomy syndrome, were discussed with the patient who desired to proceed with surgery. Plan: NPO IV fluid Antiemetic and pain med as needed Laparoscopic cholecystectomy COVID-19 COVID-19 status: Negative Result date/Date tested (Pos, Neg/Pending): 04/21/20 Time Spent With Patient Time with patient: 15-24 minutes
[2020-04-21] MEDS: LACTATED RINGERS 1,000 ML 100 ML IV ×2 (11:20→13:55)
[2020-04-21] MEDS: PIPERACILLIN-TAZO 3.375 GM/50 ML FROZ.PIGGY IV (11:50)
--- NOTE | 2020-04-21 12:21 | SUR.OPER ---
Supine on padded OR bed, head on pillow, arms secured on padded arm boards at <90 degrees abduction, legs uncrossed, safety belt at thigh, tape over blanket over lower legs.
[2020-04-21] MEDS: BUPIVACAINE 0.5% W/ EPI (PF) 30 ML VIAL INJ ×2 (12:41→13:33)
[2020-04-21] MEDS: Non-Formulary Medication (Indocyanine 25 MG) 25 EACH IV (12:43)
--- NOTE | 2020-04-21 13:47 | PM.OP.1 ---
Operative Date/Time/Diagnoses Date of procedure: 04/21/20 Time of procedure: 13:47 Pre-op diagnosis: acute biliary colic Post-op diagnosis: other (acute biliary colic, chronic cholecystitis) Procedure & Clinicians Procedure: Laparoscopic cholecystectomy with intra op indocyanine green cholangiography Same procedure as scheduled: Yes Indications: Acute biliary colic Surgeon: Mackenzie Ledezma Click Yes if Unassisted: Yes Anesthesia Type: General Operative Notes Findings: Thickened gallbladder with adhesed omentum; densely adherent to liver Specimen(s): other (Gallbladder and contents) Estimated Blood Loss (mL): 10 Procedure in detail: The patient was brought into the operating room and placed supine on the OR table. Sequential compression devices were placed on both legs and turned on. Appropriate perioperative antibiotics were given prior to the start of surgery. General anesthesia was induced the patient was intubated. The abdomen was prepped and draped in sterile fashion. Surgical time-out was conducted. Local anesthetic was injected under the skin just superior to the umbilicus and a 5 mm vertical incision was made at this site. The umbilical stalk was grasped with a Al and elevated. A Veress needle was passed through the fascia into proper position. The position was tested with a saline drop test which was appropriate for intra-abdominal Veress needle placement. The abdomen was then insufflated in the usual fashion. Once insufflated to 15 mm Hg the Veress needle was removed and a 5 mm optical trocar was placed under direct vision using a 5 mm 30 degree scope. Once the camera was inside the abdomen I took a look around. There was no injury from port placement. Two additional ports were placed in a similar fashion in the right upper quadrant and a 10 mm port was placed in the epigastrium. Through the 2 lateral ports the gallbladder was grasped and elevated and the infundibulum was retracted laterally to the patient's right. This exposed the gallbladder hilum and allowed for dissection of the cystic duct and cystic artery. There was quite a bit of dense scar tissue throughout the gallbladder hilum. This required tedious careful dissection to avoid injury to the bile ducts. Indocyanine green cholangiography was used to confirm the cystic duct prior to clipping and cutting it. A good view of the cystic duct was obtained, and the common duct far below and out of the way of dissection. Once the cystic duct and artery were completely dissected out and I was able to see liver behind and between both structures without any other structures in the way, giving us the critical view of safety. At this point I doubly clipped both structures on the patient's side and put a single clip on the gallbladder side of both the cystic duct and artery. Both structures were then divided with laparoscopic [place]. Following this the gallbladder was gradually dissected free from the liver. There was no plane between the gallbladder and the liver. The liver was very soft and fatty, and bleeding from the surface of the liver had to be controlled with cautery and clips. Several small vessels had to be controlled with cautery. Once the gallbladder was entirely freed, it was placed inside an Endo-Catch bag and removed through the epigastric port site. I [did] not have to enlarge the epigastric site in order to get the gallbladder out. Once it was out and passed off to the back table I then took another look inside the abdomen. The raw surface of the liver was hemostatic at this point. I placed Surgicel in the gallbladder fossa to ensure hemostasis. I suctioned clean any remaining blood or fluid on the lateral side of the liver and in the subhepatic space. There was no active bleeding or leaking of bile from the gallbladder fossa or from the clipped stumps of the cystic duct and artery. The epigastric port site was closed with the Fco Holguin using 0 Vicryl in the fascia. At this point the insufflation was removed from the abdomen and the epigastric port site was closed 3 O Vicryl in the subcutaneous layers, and 4 Monocryl in the skin. The remaining port sites were closed with 4 Monocryl in the skin. Each port site was sealed with Dermabond. Local anesthetic was given at each of the port sites and in the fascia. This concluded the procedure. At this point the needle sponge and instrument counts were correct. The gallbladder was passed off the table for pathology. Patient was awakened from anesthesia and extubated. She was transferred to the postanesthesia care unit in stable condition. Complications: none Post-operative Condition: stable Disposition: PACU
--- NOTE | 2020-04-21 15:23 | PC.NURSE ---
Patient arrived to room 213 at 1440. She has 4 lapsites that are cdi, closed with durmobond. Report passed onto Magdalena URENA.
[2020-04-21] MEDS: ACETAMINOPHEN 325 MG TABLET 650 MG PO (16:04)
[2020-04-21] MEDS: ONDANSETRON 4 MG/2 ML INJ IV (17:14)
[2020-04-21] MEDS: DOCUSATE 100 MG CAPSULE PO (20:37)
[2020-04-21] MEDS: OXYCODONE IR 5 MG TABLET PO (22:47)
[2020-04-22] MEDS: LACTATED RINGERS 1,000 ML 100 ML IV (01:52)
--- NOTE | 2020-04-22 05:06 | PC.NURSE ---
0500 Informed by Sammie slabbing machine operator, STAT CMP was not drawn due to missed timing. She stated she will pass it on to the next shift at 0700.
[2020-04-22 05:27] VITALS: BP 124/78; PULSE 85; RESP 16; TEMP 36.4; O2SAT 94
[2020-04-22] MEDS: ACETAMINOPHEN 325 MG TABLET 650 MG PO (07:47)
[2020-04-22 07:55] LABS: Add Manual Diff / Slide Review NO; Basophils Absolute Auto 0 /uL (0-100); Basophils Percent Auto 0.3 % (0-2); Eosinophils Absolute Auto 0 /uL (0-450); Eosinophils Percent Auto 0.1 % (2-4); Hematocrit 39.3 % (36-46); Hemoglobin 12.8 g/dL (12.0-16.0); Lymphocytes Absolute Auto 1200 /uL (1100-4500); Mean Corpuscular HGB Conc 32.6 % (30-36); Mean Corpuscular Hemoglobin 28.9 PG (26-34); Mean Corpuscular Volume 88.7 fL (80-100); Monocytes Absolute Auto 900 /uL (0-900); Monocytes Percent Auto 7.2 % (3-14); Neutrophils Absolute Auto 9900 /uL (1500-7000); Neutrophils Percent Auto 82.4 % (50-75); Platelet Count 283 X10^3/uL (150-400); Red Blood Cell Count 4.43 X10^6/uL (4.0-5.2); Red Cell Distribution Width 13.4 % (11.6-14.8)
[2020-04-22 08:06] LABS: Alanine Aminotransferase 107 IU/L (<35); Albumin 4.1 g/dL (3.5-5.0); Albumin Globulin Ratio 1.3 (1.0-2.8); Alkaline Phosphatase 80 U/L (38-126); Aspartate Aminotransferase 65 IU/L (14-36); Bilirubin Total 0.5 mg/dL (0.2-1.3); Blood Urea Nitrogen 14 mg/dL (7-17); Calcium 9.4 mg/dL (8.4-10.2); Carbon Dioxide 26 mmol/L (22-32); Chloride 105 mmol/L (98-107); Estimated Glomerular Filt Rate > 60.0 mL/min (>60); Globulin 3.1 g/dL (1.7-4.1); Glucose 111 mg/dL (70-100); HEMOLYSIS < 15 (0-50); Potassium 4.3 mmol/L (3.4-5.1); Sodium 138 mmol/L (137-145); Total Protein 7.2 g/dL (6.3-8.2)
[2020-04-22 08:25] VITALS: BP 124/63; PULSE 63; RESP 15; TEMP 36.6; O2SAT 97
[2020-04-22] MEDS: INFLUENZA VACCINE 0.5 ML SYRINGE IM (09:20)
[2020-04-22] MEDS: SODIUM CHLORIDE 0.9% FLUSH 10 ML IV (09:22)
[2020-04-22] MEDS: DOCUSATE 100 MG CAPSULE PO (09:22)
--- NOTE | 2020-04-22 10:11 | CM.DANOTE ---
DCP: Case received, EMR reviewed and met with patient. Introduced self and role. Significant other was also at bedside. Was able to meet with patient and obtain information regarding her health and baseline activity status prior to hospitalization. DCP assessment completed with information currently available. Patient is a 19 year old female who admitted yesterday morning to the care of the hospitalist/surgical team. PCP: Dr. Farr. Payer: confirmed: [facility]. Patient came to the hospital via private vehicle secondary to having abdominal discomfort. She was diagnosed with a large gallstone at the neck of her gallbladder. She had laparoscopic cholecystectomy yesterday. Met with patient in her room. She was laying in bed, pleasant. Her significant other, which she confirms that she lives with, was sleeping in the room. She confirmed that he can assist her at home with any needs. She is independent at baseline, and is self employed. P: DCP to continue to follow. Patient should be able to go home when she is medically stable. Ayanna Esposito RN/Sales Account Manager
[2020-04-22 11:00] VITALS: PULSE 80; RESP 15; TEMP 36.7; O2SAT 96
--- NOTE | 2020-04-22 13:42 | PC.NURSE ---
DC instructions. provided pt and friend with DC instructions. No questions remain. Patient changed into personal clothing and packed up all personal belongings. PIV removed and tolerated well. Transferred pt to and then transferred to personal vehicle.
--- NOTE | 2020-04-25 17:33 | PC.NURSE ---
Late Entry; Zosyn infusion initiated at 11:50, complete at 12:21.
== END 2020-04-22 13:44 | disposition home or self-care (01) ==
LOC: ED 07:10 → AC 09:12
PROVIDERS: Admitting Provider Surgery; Emergency Provider Emergency Medicine; PCP Family Medicine; Referring Provider Emergency Medicine; Visit Provider Surgery
PROC: 0FT44ZZ Resection of Gallbladder, Percutaneous Endoscopic Approach (ICD-10-PCS; CPT 47562; principal; 2020-04-21 11:30)
DX: K80.10 Calculus of gallbladder with chronic cholecystitis without obstruction (principal); R10.11 Right upper quadrant pain; E66.9 Obesity, unspecified; Z68.38 Body mass index [BMI] 38.0-38.9, adult; K82.8 Other specified diseases of gallbladder; Z23 Encounter for immunization; Z11.59 Encounter for screening for other viral diseases
CPT/HCPCS: 47563; 36415; 76705; 80053; 81003; 81015; 81025; 83690; 85025; 87635; 90471; 90656; 96365; 96375; 99220; 99283; 99284; G0378; J1100; J1170; J1885; J2250; J2405; J2543; J2704; J3010; Q2038

== ENCOUNTER 2020-08-27 11:24 | Emergency (ER) | payer BC, SELFPAY ==
[2020-04-21 15:44] VITALS: BMI 37.6
[2020-08-27 11:31] VITALS: BP 132/89; PULSE 100; RESP 15; TEMP 36.9; O2SAT 98; BMI 37.6
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
[2020-08-27] MEDS: diphenhydrAMINE 50 MG/ML VIAL 25 MG IV (11:45)
[2020-08-27] MEDS: FAMOTIDINE 20 MG/50 ML PIGGYBACK 200 MG IV (11:47)
[2020-08-27] MEDS: methylPREDNISolone 125 MG/2 ML VIAL IV (11:47)
[2020-08-27 12:29] VITALS: BP 119/61; PULSE 51; RESP 24; O2SAT 95
== END 2020-08-27 12:31 | disposition home or self-care (01) ==
PROVIDERS: Emergency Provider Emergency Medicine; PCP Family Medicine
DX: L25.9 Unspecified contact dermatitis, unspecified cause (principal)
CPT/HCPCS: 96365; 96375; 99283; 99284; J1200; J2930

== ENCOUNTER → 2021-05-21 15:08 | Outpatient (CLI) | payer BC, SELFPAY ==
[2020-04-21 15:44] VITALS: BMI 37.6
[2021-05-21 19:17] LABS: COVID19 -Nasal RAPID POSITIVE (Negative)
== END ==
PROVIDERS: PCP Family Medicine; Referring Provider Physician Assistant; Visit Provider Physician Assistant
DX: U07.1 COVID-19 (principal); Z20.822 Contact with and (suspected) exposure to COVID-19; R05.9 Cough, unspecified
CPT/HCPCS: 87635

== ENCOUNTER → 2021-06-05 14:52 | Outpatient (CLI) | payer BC, SELFPAY ==
[2020-04-21 15:44] VITALS: BMI 37.6
--- NOTE | 2021-06-05 14:53 | DI.US.S_ITS ---
PROCEDURE: US ABDOMEN COMPLETE INDICATIONS: RUQ PAIN TECHNIQUE: Real-time scanning was performed of the abdominal and retroperitoneal organs, with image documentation. COMPARISON: [facility], , US ABDOMEN LIMITED, 04/21/2020, 7:00. FINDINGS: Liver: The liver demonstrates mildly prominent size. The liver demonstrates generalized mildly increased echogenicity. This decreases ultrasound sensitivity for detection of hepatic masses. Gallbladder: Removed. Biliary ducts: Intrahepatic bile ducts are non-dilated. Extrahepatic bile duct caliber measures 5 mm. Normal is 6-7 mm or less in diameter, or 10 mm or less post-cholecystectomy. Pancreas: Visualized portions of the pancreas are sonographically normal. Spleen: Spleen is normal in size and homogeneous in echotexture. Kidneys: Kidneys are normal in size and echotexture. Right kidney measures 11.8 cm long; left kidney measures 12 cm long. No hydronephrosis or nephrolithiasis. No solid masses. Aorta: Visualized aorta is normal in caliber at less than 3 cm. Iliacs: Proximal common iliac arteries are normal in caliber at less than 2.5 cm. IVC: Intrahepatic inferior vena cava is patent. Miscellaneous: No free abdominal fluid. Additional, dedicated ultrasound scanning is performed at the area of clinical concern involving the cholecystectomy scar. No focal ultrasound abnormalities are seen within this region. IMPRESSION: No ultrasound abnormalities can be seen at the area of clinical concern at the cholecystectomy scar. The liver demonstrates increased echogenicity. This finding is nonspecific, yet it is most commonly attributed to fatty infiltration. Dictated by: Ayush Willard M.D. on 06/05/2021 at 14:27 Approved by: Ayush Willard M.D. on 06/05/2021 at 14:28
== END ==
PROVIDERS: PCP Family Medicine; Referring Provider Physician Assistant; Visit Provider Physician Assistant
DX: R10.11 Right upper quadrant pain (principal); R10.13 Epigastric pain; L91.0 Hypertrophic scar
CPT/HCPCS: 76700

== ENCOUNTER → 2021-12-06 11:53 | Outpatient (CLI) | payer BC, SELFPAY ==
[2020-04-21 15:44] VITALS: BMI 37.6
[2021-12-06 13:38] LABS: HEMOLYSIS < 15 (0-50); Iron 65 ug/dL (37-170)
[2021-12-06 13:50] LABS: Percent Iron Saturation 19 % (15-50); Total Iron Binding Capacity 336 ug/dL (265-497); Transferrin 266 mg/dL (206-381)
[2021-12-06 14:05] LABS: TSH w/ Reflex to FT4 2.72 uIU/mL (0.47-4.68)
[2021-12-06 14:10] LABS: Urine N gonorrhoeae NOT DETECTED
[2021-12-06 14:15] LABS: Urine Chlamydia NOT DETECTED
== END ==
PROVIDERS: PCP Family Medicine; Referring Provider Physician Assistant; Visit Provider Physician Assistant
DX: R53.83 Other fatigue (principal); R73.09 Other abnormal glucose; Z20.2 Contact with and (suspected) exposure to infections with a predominantly sexual mode of transmission; Z86.32 Personal history of gestational diabetes
CPT/HCPCS: 36415; 83036; 83540; 83550; 84443; 87491; 87591

== ENCOUNTER → 2022-03-01 14:24 | Outpatient (CLI) | payer BC, SELFPAY ==
[2020-04-21 15:44] VITALS: BMI 37.6
--- NOTE | 2022-03-01 14:26 | DI.RAD.S_ITS ---
PROCEDURE: XR CHEST 2V INDICATIONS: r/o pna vs bronchitis TECHNIQUE: 2 views of the chest were acquired. COMPARISON: [facility], , XR CHEST 1V, 11/04/2019, 10:21. [facility], CR, CHEST 2 VIEW, 11/13/2016, 20:53. FINDINGS: Surgical changes and devices: None. Lungs and pleura: Lungs are clear. No pleural effusions or pneumothorax. There might be peribronchial cuffing. Mediastinum: Mediastinal contours are normal. Heart size is normal. Bones and chest wall: No suspicious bony abnormalities. Soft tissues appear unremarkable. IMPRESSION: No acute radiographic abnormality. Possible peribronchial cuffing can be seen with bronchitis, correlate clinically. Dictated by: Angel Tovar M.D. on 03/01/2022 at 14:46 Approved by: Angel Tovar M.D. on 03/01/2022 at 14:47
== END ==
PROVIDERS: PCP Family Medicine; Referring Provider Registered Nurse; Visit Provider Registered Nurse
DX: R06.00 Dyspnea, unspecified (principal)
CPT/HCPCS: 71046

== ENCOUNTER → 2022-06-26 09:24 | Outpatient (CLI) | payer BC, SELFPAY ==
[2020-04-21 15:44] VITALS: BMI 37.6
--- NOTE | 2022-06-26 09:27 | DI.MG.S_ITS ---
UNILATERAL RIGHT DIGITAL DIAGNOSTIC MAMMOGRAM 3D/2D: 06/26/2022 CLINICAL: Right breast lump. Baseline. Comparison is made to exam dated: 06/26/2022 [facility]. The right breast is extremely dense, which lowers the sensitivity of mammography (category d />75% glandular tissue). No significant masses, calcifications, or other findings are seen in the breast. No abnormality which corresponds with the palpable abnormality is seen. IMPRESSION: NEGATIVE There is no abnormality seen in the right breast to correspond with the palpable abnormality at 11 o'clock, however, clinical followup is recommended. There is no mammographic evidence of malignancy. Based on the Tyrer Cuzick model (a risk assessment model) the patient's lifetime risk is 10.3% and her 10 year risk is 0.1%. According to the ACR, ACS, and NCCN guidelines, an annual breast MRI exam along with mammogram is recommended if the patient's lifetime risk is 20% or greater. This exam was interpreted at Station ID: [id number]. NOTE: For mammograms, a report in lay terms will be sent to the patient. Approximately 15% of breast malignancies will not be visualized mammographically. In the management of a palpable breast mass, a negative mammogram must not discourage biopsy of a clinically suspicious lesion. Electronically Signed By: Shaw Saenz M.D. acr/:06/26/2022 10:28:44 letter sent: Clinical Evaluation ACR BI-RADS Category 1: Negative 3341F
--- NOTE | 2022-06-26 09:27 | DI.US.S_ITS ---
ULTRASOUND OF RIGHT BREAST: 06/26/2022 CLINICAL: Palpable right breast lump x 1 month. No prior exams were available for comparison. Doppler ultrasound of the right breast was performed. Chan scale images of the real-time examination were reviewed. There is no ultrasound abnormality in the area of palpable abnormality at the 10:30 position 7 cm from the nipple as well as an area in the 10:30 position 12 cm from the nipple. IMPRESSION: INCOMPLETE: NEEDS ADDITIONAL IMAGING EVALUATION There is no abnormality seen in the right breast to correspond with the area of clinical concern at 10 o'clock, however, mammogram is recommended. This exam was interpreted at Station ID: [id number]. Electronically Signed By: Shaw Saenz M.D. acr/:06/26/2022 10:08:59 Ultrasound BI-RADS: 0 Indeterminate
== END ==
PROVIDERS: PCP Family Medicine; Referring Provider Physician Assistant; Visit Provider Physician Assistant
DX: N63.11 Unspecified lump in the right breast, upper outer quadrant (principal)
CPT/HCPCS: 76642; 77065; G0279

== ENCOUNTER → 2022-08-01 11:18 | Outpatient (CLI) | payer BC, SELFPAY ==
[2020-04-21 15:44] VITALS: BMI 37.6
--- NOTE | 2022-08-01 11:18 | DI.MRI.S_ITS ---
BREAST MRI OF BOTH BREASTS: 08/01/2022 CLINICAL: Lump in Right breast. PROCEDURE: MR BREAST BI WO/W CON INDICATIONS: Breast/chest wall palpable abnormality TECHNIQUE: The patient was placed prone in a dedicated breast imaging coil. Precontrast axial STIR and 3D FLASH without fat saturation sequences were obtained. Both before and after bolus injection of contrast, sequential 1-minute axial 3D FLASH with fat saturation sequences for 3 time points, with subtraction images and maximum intensity projections (MIP's) generated. Delayed sagittal FLASH images with fat saturation were also obtained. Computer-aided detection, including computer algorithm analysis of MRI image data for lesion detection and characterization, pharmacokinetic analysis, with further physician review for interpretation, was performed. COMPARISON: [facility], , DIAGNOSTIC MAMMO UNILAT RT, 06/26/2022, 10:17. [facility], , US BREAST RT LIMITED, 06/26/2022, 9:35. FINDINGS: Image quality: Excellent. There is mild background parenchymal enhancement. Right breast: No abnormal focus, mass, or abnormal enhancement. Normal-appearing lymph nodes are seen in the right axilla. Left breast: No abnormal focus, mass, or abnormal enhancement. Normal-appearing lymph nodes are seen in the right axilla. Miscellaneous: The visualized heart, liver, and lungs are grossly normal. IMPRESSION: NEGATIVE Normal bilateral breast MRI. BIRADS 1. Normal. COMMENT: The imaging literature indicates that a negative contrast breast MRI examination has a high sensitivity and a moderate specificity for detecting and excluding invasive carcinomas to a detection threshold of 3-5 mm; nonetheless, appropriate clinical and mammographic follow-up are recommended. MRI is not sensitive for detecting DCIS (ductal carcinoma in situ) and may not detect large invasive neoplasms that show only minimal enhancement such as mucinous carcinoma. If there are suspicious calcifications or clinically worrisome palpable masses, then biopsy should still be considered. Invasive neoplasms can be hidden by co-existent and benign enhancement caused by mastitis, hormone therapy effects, radiation therapy, , and recent biopsy or surgery. False positive examinations can occur in a number of circumstances, including breasts that have recently been subject to invasive procedures and those that contain atypical ductal hyperplasia, hormonally stimulated glandular tissue, fat necrosis, or radial scars. This exam was interpreted at Station ID: [id number]. Electronically Signed By: Shaw Saenz M.D. acr/:08/01/2022 12:59:43 letter sent: Normal Exam ACR BI-RADS Category 1: Negative [id number]
== END ==
PROVIDERS: PCP Family Medicine; Referring Provider Surgery; Visit Provider Surgery
DX: N63.10 Unspecified lump in the right breast, unspecified quadrant (principal)
CPT/HCPCS: 77049; A9579

== ENCOUNTER 2023-03-16 17:15 | Emergency (ER) | payer BC, OTHER, MEDICAID, SELFPAY ==
[2020-04-21 15:44] VITALS: BMI 37.6
[2023-03-16] VITALS (8 sets, daily range): BP systolic 116–165; BP diastolic 68–104; PULSE 65–108; RESP 20–22; TEMP 37.1; O2SAT 96–100; BMI 41.7
--- NOTE | 2023-03-16 17:37 | DI.RAD.S_ITS ---
PROCEDURE: XR CHEST 1V INDICATIONS: chest pain TECHNIQUE: One view of the chest was acquired. COMPARISON: [facility], CR, XR CHEST 2V, 03/01/2022, 14:26. FINDINGS: Surgical changes and devices: None. Lungs and pleura: Lungs are clear. No pleural effusions or pneumothorax. Mediastinum: Mediastinal contours appear normal. Heart size is normal. Bones and chest wall: No suspicious bony lesions. Overlying soft tissues appear unremarkable. IMPRESSION: Portable chest within normal limits for age. Dictated by: Hany Agustin M.D. on 03/16/2023 at 17:28 Approved by: Hany Agustin M.D. on 03/16/2023 at 17:28
[2023-03-16 18:11] LABS: Add Manual Diff / Slide Review NO; Basophils Absolute Auto 100 /uL (0-100); Basophils Percent Auto 1.2 % (0-2); Eosinophils Absolute Auto 100 /uL (0-450); Hematocrit 42.1 % (36-46); Hemoglobin 14.3 g/dL (12.0-16.0); Lymphocytes Absolute Auto 1600 /uL (1100-4500); Lymphocytes Percent Auto 28.4 % (25-40); Mean Corpuscular HGB Conc 33.9 % (30-36); Mean Corpuscular Hemoglobin 29.6 PG (26-34); Mean Corpuscular Volume 87.3 fL (80-100); Monocytes Absolute Auto 400 /uL (0-900); Neutrophils Absolute Auto 3500 /uL (1500-7000); Neutrophils Percent Auto 61.4 % (50-75); Platelet Count 260 X10^3/uL (150-400); Red Blood Cell Count 4.82 X10^6/uL (4.0-5.2); Red Cell Distribution Width 13.9 % (11.6-14.8); White Blood Cell Count 5.8 X10^3/uL (4.5-11.0)
[2023-03-16 18:14] LABS: INR 1.1 (0.9-1.3); Prothrombin Time 12.4 SECONDS (10.1-12.7)
[2023-03-16 18:16] LABS: D Dimer 241 ng/ml (<500)
[2023-03-16 18:17] LABS: PTT Partial Thromboplastin Tim 34 SECONDS (26-36)
[2023-03-16 18:19] LABS: Alanine Aminotransferase 72 IU/L (<35); Albumin 4.4 g/dL (3.5-5.0); Albumin Globulin Ratio 1.3 (1.0-2.8); Alkaline Phosphatase 59 U/L (38-126); Aspartate Aminotransferase 53 IU/L (14-36); BUN Creatinine Ratio 19.5 (6-22); Bilirubin Total 0.5 mg/dL (0.2-1.3); Blood Urea Nitrogen 15 mg/dL (7-17); Calcium 9.8 mg/dL (8.4-10.2); Carbon Dioxide 29 mmol/L (22-32); Chloride 102 mmol/L (98-107); Creatine Kinase 78 U/L (30-135); Estimated Glomerular Filt Rate > 60 mL/min (>60); Globulin 3.3 g/dL (1.7-4.1); Glucose 103 mg/dL (70-100); HEMOLYSIS 44 (0-50); Lipase 58 U/L (23-300); Magnesium 1.9 mg/dL (1.6-2.3); Potassium 4.1 mmol/L (3.4-5.1); Sodium 137 mmol/L (137-145); Total Protein 7.7 g/dL (6.3-8.2)
[2023-03-16 18:21] LABS: COVID19 -Nasal RAPID Negative (Negative)
[2023-03-16 18:30] LABS: Troponin I < 0.012 ng/mL (0.01-0.034)
--- NOTE | 2023-03-16 18:54 | ED.CHESTPAIN ---
HPI - Chest Pain General Chief Complaint: Chest Pain Stated Complaint: sob chest pain/feels heart squeezing Time Seen by Provider: 03/16/23 18:54 Source: patient Mode of arrival: Ambulatory Limitations: no limitations History of Present Illness HPI narrative: Patient is a 22-year-old female who presents today with ongoing chest pressure for the last 2 days. She reports that she has had some pressures since she got COVID last month. She had some similar symptoms when she would COVID in 2020 however this seems to be persisting. She is following up with the PCP she is scheduled ZIO patch next week. They traveled to [place] couple weeks ago she was feeling poorly there and went to the ED. the last 2 days however she reports constant pressure on the left side sometimes it is tender to palpation but she still describes pressure. No radiation. No significant fever cough. She was worried today that it might be something else and was instructed to go to the ED Related Data Previous Rx's Medication Instructions Recorded cholestyramine (with sugar) 4 gram 4 g PO QACHS Post Cholecystectomy 02/17/23 oral powder Diarrhea #348.6 grams Allergies Allergy/AdvReac Type Severity Reaction Status Date / Time No Known Drug Allergies Allergy Verified 03/16/23 17:27 Patient History Medical History At risk for difficulty Vaginal delivery Surgical History S/P cholecystectomy Hx of tonsillectomy [place] teeth extracted Family History Mother Depression Bipolar 1 disorder Hypertension Hyperlipidemia Father Acquired hypothyroidism Grandfather Diabetes mellitus Grandfather Cancer Alzheimer's dementia Grandmother Cancer Family/Other Myocardial infarction Social History marital status: unmarried,living together household members: significant other pets and animals: Yes (Cats in-house and aware) education level: high school occupational status: student current occupational exposures/hazards: No Previous occupational history: Considering College : [employer] special issa needs: No travel history: recent leisure activities: exercise (walks) Smoking Status: Never smoker second hand exposure: No alcohol intake: never Smoking Status: Never smoker alcohol intake frequency: 0-2 drinks per day Substance Use Type: does not use Exam Initial Vital Signs Initial Vital Signs: Vital Signs Temperature 98.7 F 03/16/23 17:27 Pulse Rate 108 H 03/16/23 17:27 Respiratory Rate 22 03/16/23 17:27 Blood Pressure 147/78 H 03/16/23 17:27 Pulse Oximetry 100 03/16/23 17:27 Oxygen Delivery Method Room Air 03/16/23 17:27 GENERAL: Alert well-appearing 22-year-old female and in no acute distress. HEENT: Head atraumatic,EOMI, pupils reactive, face symmetric, moist mucous membranes CARDIOVASCULAR: Regular rate and rhythm without murmurs, rubs or gallops. RESPIRATORY: Breath sounds equal bilaterally, no wheezes rales or rhonchi. Speaks in full sentences no respiratory distress ABDOMEN: Soft, nontender. Normoactive bowel sounds all 4 quadrants. No guarding or rebound. EXTREMITIES: Normal range of motion, no clubbing or edema. Neurovascularly intact NEUROLOGICAL: Alert and oriented x4.Normal gait and speech. SKIN: Warm, dry, no laceration, no petechiae, no rashes or lesions. Scores HEART Score Heart Score history: Slightly Suspicious Heart Score EKG: Normal Heart Score Age: < 45 years old Heart Score risk factors: No known risk factors Heart Score troponin: < or = to normal limit Heart Score Total: 0 Course Orders Ordered: ED Orders 03/16/23 17:37 XR chest 1V Stat EKG-12 Lead Stat 03/16/23 17:45 COVID19 -Nasal RAPID Stat Complete Blood Count AUTO DIFF Stat Comprehensive Metabolic Panel Stat D Dimer Stat Lipase Stat Magnesium Stat PTT Partial Thromboplastin South Stat Prothrombin Time INR Stat TSH [Thyroid Stimulating Hormone] Stat Troponin & CK Cardiac Panel Stat Discontinued Medications Albuterol (Albuterol Hfa Prepack) 1 box MISC SEEINSTR ONE Stop: 03/16/23 19:28 Last Admin: 03/16/23 19:32 Dose: 1 box Documented By: Aspirin (Aspirin 81 Mg Chew Tab) 324 mg PO NOW ONE Stop: 03/16/23 17:38 Last Admin: 03/16/23 18:00 Dose: Not Given Documented By: MLM Vital Signs Vital signs: Vital Signs - 8 hr 03/16/23 18:11 03/16/23 18:12 03/16/23 18:12 Pulse Rate 68 89 Respiratory Rate 20 20 Blood Pressure 165/93 H Pulse Oximetry 99 99 03/16/23 18:30 03/16/23 18:30 03/16/23 19:00 Pulse Rate 84 Respiratory Rate 20 Blood Pressure 153/96 H 158/101 H Pulse Oximetry 96 03/16/23 19:00 03/16/23 19:03 03/16/23 19:03 Pulse Rate 83 75 Respiratory Rate Blood Pressure 161/104 H Pulse Oximetry 97 98 03/16/23 19:07 03/16/23 19:07 03/16/23 19:30 Pulse Rate 86 65 Respiratory Rate 21 22 Blood Pressure 141/76 H Pulse Oximetry 99 97 03/16/23 19:30 Pulse Rate Respiratory Rate Blood Pressure 116/68 Pulse Oximetry MDM - Chest Pain Lab Data 03/16/23 17:45 03/16/23 17:45 Labs: Lab Results 03/16/23 Range/Units 17:45 WBC 5.8 (4.5-11.0) X10^3/uL RBC 4.82 (4.0-5.2) X10^6/uL Hgb 14.3 (12.0-16.0) g/dL Hct 42.1 (36-46) % MCV 87.3 (80-100) fL MCH 29.6 (26-34) PG MCHC 33.9 (30-36) % RDW 13.9 (11.6-14.8) % Plt Count 260 (150-400) X10^3/uL Neut % (Auto) 61.4 (50-75) % Lymph % (Auto) 28.4 (25-40) % [place] % (Auto) 7.0 (3-14) % Eos % (Auto) 2.0 (2-4) % Baso % (Auto) 1.2 (0-2) % Neut # (Auto) 3500 (3914-4686) /uL Lymph # (Auto) 1600 (7392-0068) /uL [place] # (Auto) 400 (0-900) /uL Eos # (Auto) 100 (0-450) /uL Baso # (Auto) 100 (0-100) /uL PT 12.4 (10.1-12.7) SECONDS INR 1.1 (0.9-1.3) APTT 34 (26-36) SECONDS D-Dimer 241 (<500) ng/ml Sodium 137 (137-145) mmol/L Potassium 4.1 (3.4-5.1) mmol/L Chloride 102 (98-107) mmol/L Carbon Dioxide 29 (22-32) mmol/L BUN 15 (7-17) mg/dL Creatinine 0.77 (0.52-1.04) mg/dL Estimated GFR > 60 (>60) mL/min BUN/Creatinine Ratio 19.5 (6-22) Glucose 103 H (70-100) mg/dL Calcium 9.8 (8.4-10.2) mg/dL Magnesium 1.9 (1.6-2.3) mg/dL Total Bilirubin 0.5 (0.2-1.3) mg/dL AST 53 H (14-36) IU/L ALT 72 H (<35) IU/L Alkaline Phosphatase 59 (38-126) U/L Total Creatine Kinase 78 (30-135) U/L Troponin I < 0.012 (0.01-0.034) ng/mL Total Protein 7.7 (6.3-8.2) g/dL Albumin 4.4 (3.5-5.0) g/dL Globulin 3.3 (1.7-4.1) g/dL Albumin/Globulin Ratio 1.3 (1.0-2.8) Lipase 58 (23-300) U/L TSH 1.95 (0.47-4.68) uIU/mL SARS-CoV-2 (PCR) Negative (Negative) Imaging Data Chest x-ray: Radiologist's Impression: PROCEDURE: XR CHEST 1V INDICATIONS: chest pain TECHNIQUE: One view of the chest was acquired. COMPARISON: [facility], , XR CHEST 2V, 03/01/2022, 14:26. FINDINGS: Surgical changes and devices: None. Lungs and pleura: Lungs are clear. No pleural effusions or pneumothorax. Mediastinum: Mediastinal contours appear normal. Heart size is normal. Bones and chest wall: No suspicious bony lesions. Overlying soft tissues appear unremarkable. IMPRESSION: Portable chest within normal limits for age. Dictated by: Hany gAustin M.D. on 03/16/2023 at 17:28 ECG Data Interpretation: Normal sinus rhythm rate 82 RI interval 160 QRS [address] changes no T-wave inversions MDM Narrative Medical decision making narrative: Patient healthy 22-year-old female who has had COVID twice having some ongoing chest pressure heaviness without significant shortness of breath. Blood work has been reviewed overall reassuring without leukocytosis or anemia chest x-ray does not show any abnormality. EKG does not show any abnormality she did recently travel with recent COVID infection D-dimer was checked in his less than 500- she has a negative years score unlikely to be pulmonary embolism. She has good follow up with the PCP and little beginning ZIO patch next week YEARS Algorithm for Pulmonary Embolism (PE) from [facility] on 03/16/2023 All calculations should be rechecked by clinician prior to use RESULT SUMMARY: PE excluded YEARS algorithm rules out PE (0.43% with symptomatic VTE during 3-month follow-up) INPUTS: patient ?> 0 = No Clinical signs of DVT ?> 0 = No Hemoptysis ?> 0 = No PE most likely diagnosis ?> 0 = No D-dimer >=,000 ng/mL ?> 0 = No Discharge Plan Departure Patient Disposition: Home Clinical Impression: Atypical chest pain Instructions: DI for Atypical Chest Pain Activity Restrictions/Additional Instructions: *You have been diagnosed with atypical chest pain *What to do: At this time please follow-up with your primary get a ZIO patch. IV unlikely you have a blood clot blood work and x-ray are negative no need for any sort of antibiotics *Continue to take medications as directed Albuterol 1-2 puffs with spacer if needed for shortness of breath only if it helps if it does not help then do not use it *Follow up with your primary care provider in 2-3 days or call [phone] *Return to ER if you should have dizziness lightheadedness passing out or any new, worsening or concerning symptoms Prescriptions: No Action cholestyramine (with sugar) 4 gram powder 4 g PO QACHS Qty: 348.6 3RF Rx Instructions: no meds 1 hr before/4-6 hr after dose. Referrals: Yana Urbina MD [Primary Care Provider] - Stand Alone Forms: Patient Portal/API
[2023-03-16] MEDS: ALBUTEROL HFA PREPACK 1 BOX MISC (19:32)
[2023-03-16 19:44] LABS: Thyroid Stimulating Hormone 1.95 uIU/mL (0.47-4.68)
== END 2023-03-16 19:44 | disposition home or self-care (01) ==
PROVIDERS: Emergency Medicine; Emergency Provider Emergency Medicine; PCP Student in an Organized Health Care Education/Training Program
DX: R07.89 Other chest pain (principal); Z86.16 Personal history of COVID-19; Z11.52 Encounter for screening for COVID-19
CPT/HCPCS: 36415; 71045; 80053; 82550; 83690; 83735; 84443; 84484; 85025; 85379; 85610; 85730; 87635; 93005; 99283; 99284; C9803

== ENCOUNTER → 2023-03-19 09:00 | Outpatient (CLI) | payer BC, OTHER, MEDICAID, SELFPAY ==
[2020-04-21 15:44] VITALS: BMI 37.6
--- NOTE | 2023-03-19 09:03 | DI.RAD.S_ITS ---
PROCEDURE: XR CHEST 2V INDICATIONS: Abnormal heart rhythm TECHNIQUE: 2 views of the chest were acquired. COMPARISON: [facility], , XR CHEST 1V, 03/16/2023, 18:10. [facility], CR, XR CHEST 2V, 03/01/2022, 14:26. FINDINGS: Surgical changes and devices: Right upper quadrant surgical clips.. Lungs and pleura: Lungs are clear. No pleural effusions or pneumothorax. Mediastinum: Mediastinal contours are normal. Heart size is normal. Bones and chest wall: No suspicious bony abnormalities. Soft tissues appear unremarkable. IMPRESSION: No acute cardiopulmonary abnormality is seen. Dictated by: Don Plata M.D. on 03/19/2023 at 10:02 Approved by: Don Plata M.D. on 03/19/2023 at 10:02
== END ==
PROVIDERS: PCP Student in an Organized Health Care Education/Training Program; Referring Provider Student in an Organized Health Care Education/Training Program; Visit Provider Student in an Organized Health Care Education/Training Program
DX: I49.9 Cardiac arrhythmia, unspecified (principal)
CPT/HCPCS: 71046; 93246

== ENCOUNTER → 2023-03-19 09:31 | Outpatient (CLI) | payer BC, OTHER, MEDICAID, SELFPAY ==
[2020-04-21 15:44] VITALS: BMI 37.6
== END ==
PROVIDERS: PCP Student in an Organized Health Care Education/Training Program; Referring Provider Student in an Organized Health Care Education/Training Program; Visit Provider Student in an Organized Health Care Education/Training Program
DX: I49.9 Cardiac arrhythmia, unspecified (principal)
CPT/HCPCS: 93246

== ENCOUNTER 2023-08-19 12:10 | Emergency (ER) | payer BC, OTHER, MEDICAID, SELFPAY ==
[2020-04-21 15:44] VITALS: BMI 37.6
[2023-08-19] VITALS (8 sets, daily range): BP systolic 121–136; BP diastolic 59–82; PULSE 97–119; RESP 16–24; TEMP 36.4; O2SAT 95–100; BMI 41.1
--- NOTE | 2023-08-19 12:30 | DI.RAD.S_ITS ---
PROCEDURE: XR CHEST 1V INDICATIONS: chest pain TECHNIQUE: One view of the chest was acquired. COMPARISON: [facility], CR, XR CHEST 2V, 03/19/2023, 9:10. [facility], CR, XR CHEST 1V, 03/16/2023, 18:10. FINDINGS: Surgical changes and devices: None. Lungs and pleura: Lungs are clear. No pleural effusions or pneumothorax. Mediastinum: Mediastinal contours appear normal. Heart size is normal. Bones and chest wall: No suspicious bony lesions. Overlying soft tissues appear unremarkable. IMPRESSION: No acute cardiopulmonary abnormality is seen. Dictated by: Dennys Ng M.D. on 08/19/2023 at 13:12 Approved by: Dennys Ng M.D. on 08/19/2023 at 13:12
[2023-08-19] MEDS: ONDANSETRON 4 MG/2 ML INJ IV (13:03)
[2023-08-19 13:04] LABS: Add Manual Diff / Slide Review NO; Basophils Absolute Auto 0 /uL (0-100); Basophils Percent Auto 0.3 % (0-2); Eosinophils Absolute Auto 0 /uL (0-450); Eosinophils Percent Auto 0.3 % (2-4); Hematocrit 44.9 % (36-46); Hemoglobin 14.9 g/dL (12.0-16.0); Lymphocytes Absolute Auto 600 /uL (1100-4500); Lymphocytes Percent Auto 4.4 % (25-40); Mean Corpuscular HGB Conc 33.2 % (30-36); Mean Corpuscular Hemoglobin 29.7 PG (26-34); Mean Corpuscular Volume 89.2 fL (80-100); Monocytes Absolute Auto 900 /uL (0-900); Monocytes Percent Auto 6.3 % (3-14); Neutrophils Absolute Auto 11900 /uL (1500-7000); Neutrophils Percent Auto 88.7 % (50-75); Platelet Count 214 X10^3/uL (150-400); Red Blood Cell Count 5.04 X10^6/uL (4.0-5.2); Red Cell Distribution Width 13.9 % (11.6-14.8); White Blood Cell Count 13.5 X10^3/uL (4.5-11.0)
[2023-08-19 13:09] LABS: Prothrombin Time 11.4 SECONDS (9.4-12.5)
[2023-08-19 13:12] LABS: PTT Partial Thromboplastin Tim 33 SECONDS (25.1-36.5)
[2023-08-19 13:16] LABS: Alanine Aminotransferase 67 IU/L (<35); Albumin 4.4 g/dL (3.5-5.0); Albumin Globulin Ratio 1.2 (1.0-2.8); Alkaline Phosphatase 71 U/L (38-126); Aspartate Aminotransferase 58 IU/L (14-36); BUN Creatinine Ratio 26.3 (6-22); Bilirubin Total 0.5 mg/dL (0.2-1.3); Blood Urea Nitrogen 20 mg/dL (7-17); Calcium 9.4 mg/dL (8.4-10.2); Carbon Dioxide 22 mmol/L (22-32); Chloride 107 mmol/L (98-107); Creatine Kinase 91 U/L (30-135); Estimated Glomerular Filt Rate > 60 mL/min (>60); Globulin 3.6 g/dL (1.7-4.1); Glucose 109 mg/dL (70-100); HEMOLYSIS 16 (0-50); Lipase 67 U/L (23-300); Magnesium 1.9 mg/dL (1.6-2.3); Potassium 4.5 mmol/L (3.4-5.1); Sodium 139 mmol/L (137-145)
[2023-08-19 13:28] LABS: Troponin I < 0.012 ng/mL (0.01-0.034)
--- NOTE | 2023-08-19 13:57 | ED_ITS ---
HPI - Syncope General Chief Complaint: Syncope Stated Complaint: fainted hit head then vomited Time Seen by Provider: 08/19/23 13:53 Source: patient Mode of arrival: Wheelchair Limitations: no limitations History of Present Illness HPI narrative: Patient is 22-year-old female without significant past medical history presenting today with syncopal episode. She said that she woke up did not feel quite right, which is a little bit dizzy she then sat on the toilet and passed out. She then proceeded to vomit. She had no numbness tingling or weakness. She does have a history of vertigo. She has not had diarrhea no significant abdominal pain. She received Zofran here in the ED and overall better. She did hit her head but no obvious sign of injury. Related Data Home Medications Medication Instructions Recorded Confirmed metronidazole 0.75 % topical cream 1 applic topical BID 08/04/23 08/04/23 propranolol 20 mg tablet 20 mg PO BID 08/04/23 08/04/23 Previous Rx's Medication Instructions Recorded cholestyramine (with sugar) 4 gram 4 g PO QACHS Post Cholecystectomy 08/18/23 oral powder Diarrhea #348.6 grams norethindrone (contraceptive) 0.35 0.35 mg PO DAILY #84 tabs 08/18/23 mg tablet meclizine 25 mg tablet 25 mg PO TID PRN dizziness #10 tabs 08/19/23 ondansetron 4 mg disintegrating 4 mg PO Q8H PRN nausea and 08/19/23 tablet vomiting #10 tabs Allergies Allergy/AdvReac Type Severity Reaction Status Date / Time No Known Drug Allergies Allergy Verified 08/19/23 12:23 Patient History Medical History Heavy menstrual bleeding At risk for difficulty Vaginal delivery Surgical History S/P cholecystectomy Hx of tonsillectomy [place] teeth extracted Family History Mother Depression Bipolar 1 disorder Hypertension Hyperlipidemia Father Acquired hypothyroidism Grandfather Diabetes mellitus Grandfather Cancer Alzheimer's dementia Grandmother Cancer Family/Other Myocardial infarction Social History marital status: unmarried,living together household members: significant other pets and animals: Yes (Cats in-house and aware) education level: high school occupational status: student current occupational exposures/hazards: No Previous occupational history: Considering College : [employer] special issa needs: No travel history: recent leisure activities: exercise (walks) Smoking Status: Never smoker second hand exposure: No alcohol intake: never Smoking Status: Never smoker alcohol intake frequency: 0-2 drinks per day Substance Use Type: does not use Exam Initial Vital Signs Initial Vital Signs: Vital Signs Temperature 97.5 F L 08/19/23 12:14 Pulse Rate 119 H 08/19/23 12:14 Respiratory Rate 20 08/19/23 12:14 Blood Pressure 136/82 08/19/23 12:14 Pulse Oximetry 100 08/19/23 12:14 Oxygen Delivery Method Room Air 08/19/23 12:14 GENERAL: Alert well-appearing 22-year-old female and in no acute distress. HEENT: Head atraumatic,EOMI, pupils reactive, no nystagmus face symmetric, moist mucous membranes CARDIOVASCULAR: Regular rate and rhythm without murmurs, rubs or gallops. RESPIRATORY: Breath sounds equal bilaterally, no wheezes rales or rhonchi. ABDOMEN: Soft, nontender. Normoactive bowel sounds all 4 quadrants. No guarding or rebound. EXTREMITIES: Normal range of motion, no clubbing or edema. Neurovascularly intact NEUROLOGICAL: Alert and oriented x4.Normal gait and speech. Cranial nerves II through XII grossly intact. SKIN: Warm, dry, no laceration, no petechiae, no rashes or lesions. Course Orders Ordered: ED Orders 08/19/23 12:30 XR chest 1V Stat EKG-12 Lead Stat 08/19/23 12:55 Complete Blood Count AUTO DIFF Stat Comprehensive Metabolic Panel Stat Lipase Stat Magnesium Stat PTT Partial Thromboplastin South Stat Prothrombin Time INR Stat Troponin & CK Cardiac Panel Stat Discontinued Medications Aspirin (Aspirin 81 Mg Chew Tab) 324 mg PO NOW ONE Stop: 08/19/23 12:28 Last Admin: 08/19/23 12:35 Dose: Not Given Documented By: MAITE Meclizine HCl (Meclizine Hcl 12.5 Mg Tablet) 25 mg PO NOW ONE Stop: 08/19/23 14:07 Last Admin: 08/19/23 14:46 Dose: 25 mg Documented By: MAITE Ondansetron HCl (Ondansetron 4 Mg/2 Ml Inj) 4 mg IV NOW ONE Stop: 08/19/23 13:03 Last Admin: 08/19/23 13:03 Dose: 4 mg Documented By: ROSALIND Vital Signs Vital signs: Vital Signs - 8 hr 08/19/23 12:14 08/19/23 12:38 08/19/23 12:56 Temperature 97.5 F L Pulse Rate 119 H 110 H Respiratory Rate 20 24 Blood Pressure 136/82 121/82 Pulse Oximetry 100 99 Oxygen Delivery Method Room Air 08/19/23 12:56 08/19/23 13:00 08/19/23 13:00 Temperature Pulse Rate 108 H 112 H Respiratory Rate 21 24 Blood Pressure 125/72 Pulse Oximetry 98 96 Oxygen Delivery Method 08/19/23 13:30 08/19/23 13:30 08/19/23 14:00 Temperature Pulse Rate 98 H Respiratory Rate 20 Blood Pressure 128/70 131/72 Pulse Oximetry 96 Oxygen Delivery Method 08/19/23 14:00 08/19/23 14:30 08/19/23 14:30 Temperature Pulse Rate 111 H 105 H Respiratory Rate 18 16 Blood Pressure 130/70 Pulse Oximetry 96 95 Oxygen Delivery Method 08/19/23 14:40 08/19/23 14:40 Temperature Pulse Rate 97 H Respiratory Rate 24 Blood Pressure 132/59 L Pulse Oximetry 96 Oxygen Delivery Method MDM - Syncope Lab Data 08/19/23 12:55 08/19/23 12:55 Labs: Lab Results 08/19/23 Range/Units 12:55 WBC 13.5 H (4.5-11.0) X10^3/uL RBC 5.04 (4.0-5.2) X10^6/uL Hgb 14.9 (12.0-16.0) g/dL Hct 44.9 (36-46) % MCV 89.2 (80-100) fL MCH 29.7 (26-34) PG MCHC 33.2 (30-36) % RDW 13.9 (11.6-14.8) % Plt Count 214 (150-400) X10^3/uL Neut % (Auto) 88.7 H (50-75) % Lymph % (Auto) 4.4 L (25-40) % [place] % (Auto) 6.3 (3-14) % Eos % (Auto) 0.3 L (2-4) % Baso % (Auto) 0.3 (0-2) % Neut # (Auto) 86290 H (2586-3236) /uL Lymph # (Auto) 600 L (9350-3722) /uL [place] # (Auto) 900 (0-900) /uL Eos # (Auto) 0 (0-450) /uL Baso # (Auto) 0 (0-100) /uL PT 11.4 (9.4-12.5) SECONDS INR 1.0 (0.9-1.3) APTT 33 (25.1-36.5) SECONDS Sodium 139 (137-145) mmol/L Potassium 4.5 (3.4-5.1) mmol/L Chloride 107 (98-107) mmol/L Carbon Dioxide 22 (22-32) mmol/L BUN 20 H (7-17) mg/dL Creatinine 0.76 (0.52-1.04) mg/dL Estimated GFR > 60 (>60) mL/min BUN/Creatinine Ratio 26.3 H (6-22) Glucose 109 H (70-100) mg/dL Calcium 9.4 (8.4-10.2) mg/dL Magnesium 1.9 (1.6-2.3) mg/dL Total Bilirubin 0.5 (0.2-1.3) mg/dL AST 58 H (14-36) IU/L ALT 67 H (<35) IU/L Alkaline Phosphatase 71 (38-126) U/L Total Creatine Kinase 91 (30-135) U/L Troponin I < 0.012 (0.01-0.034) ng/mL Total Protein 8.0 (6.3-8.2) g/dL Albumin 4.4 (3.5-5.0) g/dL Globulin 3.6 (1.7-4.1) g/dL Albumin/Globulin Ratio 1.2 (1.0-2.8) Lipase 67 (23-300) U/L Imaging Data Chest x-ray: Radiologist's Impression: PROCEDURE: XR CHEST 1V INDICATIONS: chest pain TECHNIQUE: One view of the chest was acquired. COMPARISON: [facility], CR, XR CHEST 2V, 03/19/2023, 9:10. [facility], CR, XR CHEST 1V, 03/16/2023, 18:10. FINDINGS: Surgical changes and devices: None. Lungs and pleura: Lungs are clear. No pleural effusions or pneumothorax. Mediastinum: Mediastinal contours appear normal. Heart size is normal. Bones and chest wall: No suspicious bony lesions. Overlying soft tissues appear unremarkable. IMPRESSION: No acute cardiopulmonary abnormality is seen. Dictated by: Dennys Ng M.D. on 08/19/2023 at 13:12 Approved by: Dennys Ng M.D. on 08/19/2023 at 13:12 ECG Data Attestation: I personally reviewed and interpreted this ECG as follows: Prior ECG tracings: available for review Interpretation: Sinus rhythm rate 107 WV interval 150 QRS [address] depression in V 3 Q-wave noted in lead 3 which was there previously in 2019 he is actually overall similar to EKG 03/16/2020 MDM Narrative Medical decision making narrative: Patient 22-year-old female presents today with dizziness nausea vomiting. It sounds as though she did not feel well when she woke up was a little dizzy and nauseous went to the toilet and passed out. She has no overall feeling much better. She was still feeling nauseous but Zofran seems to have helped. She has no focal deficits. She likely had a vasovagal reaction while on the toilet. She has no focal deficits she has not on anticoagulation at this time I see no need for head CT Blood work has been reviewed she is mild leukocytosis of 13.5, no anemia, liver enzymes are elevated but stable, troponin negative Chest x-ray reviewed no acute cardiopulmonary process EKG reviewed Patient ambulated in the ED without any sort of difficulty. She is feeling much better. She has had vertigo in the past at this time she is given meclizine as needed but dizziness seems to have subsided. She may have like a mild gastritis versus some vertigo and then a vasovagal reaction. Discharge Plan Departure Patient Disposition: Home Clinical Impression: Fainting spell Instructions: DI for Syncope in Adults (Fainting) Activity Restrictions/Additional Instructions: *You have been diagnosed with fainting *What to do: At this time increase fluids as tolerated take medication for nausea as needed *Continue to take medications as directed Zofran 4 mg every 8 hours for nausea or vomiting Meclizine 25-50 mg every 8 hours as needed for dizziness *Follow up with your primary care provider in 2-3 days or call [phone] *Return to ER if you should have increasing dizziness weakness numbness tingling persistent vomiting abdominal pain or any new, worsening or concerning symptoms Prescriptions: New meclizine 25 mg tablet 25 mg PO TID PRN (Reason: dizziness) Qty: 10 0RF ondansetron 4 mg tablet,disintegrating 4 mg PO Q8H PRN (Reason: nausea and vomiting) Qty: 10 0RF No Action metronidazole 0.75 % cream 1 applic topical BID propranolol 20 mg tablet 20 mg PO BID cholestyramine (with sugar) 4 gram powder 4 g PO QACHS Qty: 348.6 3RF Rx Instructions: no meds 1 hr before/4-6 hr after dose. norethindrone (contraceptive) 0.35 mg tablet 0.35 mg PO DAILY Qty: 84 1RF Referrals: Yana Urbina MD [Primary Care Provider] - Stand Alone Forms: Patient Portal/API
[2023-08-19] MEDS: MECLIZINE HCL 12.5 MG TABLET 25 MG PO (14:46)
== END 2023-08-19 14:58 | disposition home or self-care (01) ==
PROVIDERS: Emergency Provider Emergency Medicine; PCP Student in an Organized Health Care Education/Training Program
DX: R55 Syncope and collapse (principal); R11.2 Nausea with vomiting, unspecified
CPT/HCPCS: 71045; 80053; 82550; 83690; 83735; 84484; 85025; 85610; 85730; 93005; 93010; 96374; 99284; J2405

== ENCOUNTER → 2024-01-02 11:30 | Outpatient (CLI) | payer BC, SELFPAY ==
[2020-04-21 15:44] VITALS: BMI 37.6
--- NOTE | 2024-01-02 11:32 | DI.US.S_ITS ---
LIMITED ULTRASOUND OF RIGHT BREAST AND AXILLA: 01/02/2024 CLINICAL: Focal right breast pain / palpable lump. Comparison is made to exams dated: 06/26/2022 mammogram and 06/26/2022 ultrasound - [facility]. Real-time ultrasound of the right breast 11 o'clock, and axilla regions was performed. Chan scale images of the real-time examination were reviewed. No significant abnormalities were seen sonographically in the right breast. IMPRESSION: NEGATIVE There is no sonographic evidence of malignancy. There is no abnormality seen in the right breast to correspond with the palpable abnormality, however, clinical followup is recommended. This exam was interpreted at Station ID: [id number]. Electronically Signed By: Joel bahena/lorena:01/02/2024 21:23:56 letter sent: Clinical Evaluation Ultrasound BI-RADS: 1 Negative
== END ==
LOC: US 11:31
PROVIDERS: PCP Student in an Organized Health Care Education/Training Program; Referring Provider Student in an Organized Health Care Education/Training Program; Visit Provider Student in an Organized Health Care Education/Training Program
DX: N63.10 Unspecified lump in the right breast, unspecified quadrant (principal); N64.4 Mastodynia
CPT/HCPCS: 76642

== ENCOUNTER → 2024-05-27 09:35 | Outpatient (CLI) | payer BC, SELFPAY ==
[2020-04-21 15:44] VITALS: BMI 37.6
[2024-05-27 10:50] LABS: Hematocrit 39.8 % (36-46); Hemoglobin 13.7 g/dL (12.0-16.0); Mean Corpuscular HGB Conc 34.3 % (30-36); Mean Corpuscular Hemoglobin 30.8 PG (26-34); Mean Corpuscular Volume 89.7 fL (80-100); Platelet Count 233 X10^3/uL (150-400); Red Blood Cell Count 4.44 X10^6/uL (4.0-5.2); Red Cell Distribution Width 13.4 % (11.6-14.8); White Blood Cell Count 7.2 X10^3/uL (4.5-11.0)
[2024-05-27 11:15] LABS: Alanine Aminotransferase 44 IU/L (<35); Albumin 4.2 g/dL (3.5-5.0); Albumin Globulin Ratio 1.4 (1.0-2.8); Alkaline Phosphatase 70 U/L (38-126); Aspartate Aminotransferase 38 IU/L (14-36); BUN Creatinine Ratio 16.3 (6-22); Bilirubin Total 0.2 mg/dL (0.2-1.3); Blood Urea Nitrogen 15 mg/dL (7-17); Calcium 9.3 mg/dL (8.4-10.2); Carbon Dioxide 23 mmol/L (22-32); Chloride 107 mmol/L (98-107); Estimated Glomerular Filt Rate > 60 mL/min (>60); Glucose 91 mg/dL (70-100); HEMOLYSIS < 15 (0-50); Potassium 4.1 mmol/L (3.4-5.1); Sodium 140 mmol/L (137-145); Total Protein 7.2 g/dL (6.3-8.2)
[2024-05-27 11:49] LABS: Estradiol, Total 33.4 pg/mL
[2024-05-29 17:38] LABS: Testosterone, Free 3.9 pg/mL (0.0-4.2)
== END ==
LOC: LAB 09:36
PROVIDERS: PCP Student in an Organized Health Care Education/Training Program; Referring Provider Family Medicine; Visit Provider Family Medicine
DX: F64.9 Gender identity disorder, unspecified (principal)
CPT/HCPCS: 36415; 80053; 82670; 84402; 85027

== ENCOUNTER → 2024-06-08 12:19 | Outpatient (CLI) | payer BC, SELFPAY ==
[2020-04-21 15:44] VITALS: BMI 37.6
--- NOTE | 2024-06-08 12:20 | DI.US.S_ITS ---
PROCEDURE: US ABDOMEN LIMITED INDICATIONS: LFT elevation, assess for NAFLD TECHNIQUE: Real-time focused scanning was performed of the abdomen, with image documentation. COMPARISON: [facility], , US ABDOMEN COMPLETE, 06/05/2021, 14:58. FINDINGS: Liver is enlarged and measures 19.7 cm in length. Severely increased liver parenchymal echotexture is seen. No gross solid appearing hepatic lesion. Gallbladder is surgically absent. No intrahepatic biliary ductal dilatation. Common bile duct measures 4.6 mm in diameter. Pancreas is not visualized due to overlying bowel gas. IMPRESSION: 1. Hepatomegaly and severe hepatic steatosis. No discrete hepatic lesion. 2. Prior cholecystectomy. No biliary ductal dilatation. Dictated by: Db Fuentes M.D. on 06/08/2024 at 18:36 Approved by: Db Fuentes M.D. on 06/08/2024 at 18:37
== END ==
PROVIDERS: PCP Student in an Organized Health Care Education/Training Program; Referring Provider Family Medicine; Visit Provider Family Medicine
DX: K76.0 Fatty (change of) liver, not elsewhere classified (principal); R79.89 Other specified abnormal findings of blood chemistry; F64.9 Gender identity disorder, unspecified; Z90.49 Acquired absence of other specified parts of digestive tract
CPT/HCPCS: 76705

== ENCOUNTER → 2024-09-10 11:45 | Outpatient (CLI) | payer BC, SELFPAY ==
[2020-04-21 15:44] VITALS: BMI 37.6
--- NOTE | 2024-09-10 11:47 | DI.US.S_ITS ---
PROCEDURE: US EXTREMITY NONVASC LOWER RT INDICATIONS: assess for chronic achilles tendon rupture TECHNIQUE: Real-time scanning was performed of the right ankle, with image documentation. COMPARISON: None. FINDINGS AND IMPRESSION: 2.6 x 1.2 cm thickened region of the Achilles tendon with hypoechoic echotexture, likely edema versus scarring/tendinosis from prior injury. If there is further concern, MRI could further evaluate. Dictated by: Angel Tovar M.D. on 09/11/2024 at 17:45 Approved by: Angel Tovar M.D. on 09/11/2024 at 17:46
== END ==
PROVIDERS: PCP Family Medicine; Referring Provider Family Medicine; Visit Provider Family Medicine
DX: S86.001A Unspecified injury of right Achilles tendon, initial encounter (principal); X58.XXXA Exposure to other specified factors, initial encounter
CPT/HCPCS: 76882